=== PATIENT | male | born 1940 | race Caucasian/White ===

== ENCOUNTER 2017-03-01 16:25 | Inpatient (IN) ==
--- NOTE | 2017-03-01 16:42 | Emergency Department Report ---
Medical Clearance HPI - General Chief complaint: Medical Clearance <OctoberPablo - 03/19/17 07:40> Stated complaint: [facility] <OctoberPablo - 03/19/17 07:40> Time Seen by Provider: 03/01/17 16:42 <OctoberPablo - 03/19/17 07:40> Source: EMS, other <Tod Mckenzie - 03/01/17 18:40> Mode of arrival: wheelchair <Tod Mckenzie - 03/01/17 18:40> Limitations: altered mental status <Tod Mckenzie - 03/01/17 18:40> - History of Present Illness HPI Narrative: Patient is a 76-year-old male, brought from [place] for evaluation for dementia with behavioral disturbances. Patient lives in a facility in [place] has eloped 3 times in the past week, they've been concern for the patient's ability to care for himself and safety, [facility] was contacted and patient was transferred here for evaluation. Patient with severe dementia, does not know why he is here is only oriented to himself <Johanne Mckenzien - 03/01/17 18:40> MD complaint: medical clearance requested <MagalyTod - 03/01/17 18:40> Onset (ago): day(s) <Johanne Mckenzien - 03/01/17 18:40> Reason for Medical Clearance: psychiatric condition <Johanne Mckenzien - 18:40> Traumatic Symptoms: denies traumatic injury <Johanne Mckenzien [facility] 03/01/17 18:40> Home medications: Home Medications Medication Instructions Recorded Confirmed Acetaminophen 650 mg PO Q4H PRN 03/01/17 03/01/17 Atorvastatin [Lipitor] 20 mg PO HS 03/01/17 03/01/17 Carbidopa/Levodopa 25/250 MG 2 tab PO TID 03/01/17 03/01/17 [Sinemet] Cimetidine 300 mg PO DAILY 03/01/17 03/01/17 Citalopram [Celexa] 20 mg PO DAILY 03/01/17 03/01/17 LORazepam [Ativan] 0.5 mg PO Q6H PRN 03/01/17 03/01/17 LORazepam [Ativan] 0.5 mg PO TID 03/01/17 03/01/17 Previous Rx's Medication Instructions Recorded CephALEXin [Keflex] 500 mg PO TID 3 Days #9 capsule 03/08/17 Cyanocobalamin (B-12) [Vit. B-12] 1,000 mcg PO DAILY tablet 03/08/17 Haloperidol [Haldol] 0.5 mg PO Q6H PRN tablet 03/08/17 LORazepam [Ativan] 0.5 mg PO Q6H PRN tablet 03/08/17 Quetiapine [Seroquel] 50 mg PO TID #90 tab 03/08/17 <[facility] 07:40> Allergies/Adverse reactions: Allergies Allergy/AdvReac Type Severity Reaction Status Date / Time Penicillins Allergy Verified 03/01/17 16:55 <[facility] 03/19/17 07:40> Review of Systems Limitations: ROS unobtainable due to patient's medical condition <Tod Mckenzie [facility] 03/01/17 18:40> [facility] Patient Stated Medical History Other Behavioral Health Yes: Dementia <[facility] 03/19[facility] 07:40> Patient Stated Medical History Other Behavioral Health Yes: Dementia <BakerTod chaparro [facility] 03/01/17 18:40> Medical History Updates: Arrhythmia. dementia. Cholesterol <Tod Mckenzie [facility] 03/01/17 18:40> - Social History Smoking status: Never smoker <Tod Mckenzie [facility] 03/01/17 18:40> Substance use type: does not use <Tod Mckenzie [facility] 03/01/17 18:40> Alcohol intake frequency: does not drink <Tod Mckenzie [facility] 03/01/17 18:40> Physical Exam - General General appearance: alert, in no apparent distress <Tod Mckenzie [facility] 18:40> - ENT ENT exam: Present: normal oropharynx, mucous membranes moist, TM's normal bilaterally <Tod Mckenzie - 03/01/17 18:40> - Neck Neck exam: Present: full ROM, trachea midline <Tod Mckenzie - 03/01/17 18: 40> - Chest Chest inspection: Present: normal inspection, symmetric chest wall rise. Absent : tenderness <Tod Mckenzie Q - 03/01/17 18:40> - Respiratory Respiratory exam: Present: normal lung sounds bilaterally. Absent: respiratory distress, wheezes, stridor <Tod Mckenzie Q - 03/01/17 18:40> - Cardiovascular Cardiovascular exam: Present: regular rate, normal rhythm, normal heart sounds <Tod Mckenzie - 03/01/17 18:40> - Abdominal Exam Abdominal exam: Present: soft. Absent: distention, tenderness <Tod Mckenzie Q - 03/01/17 18:40> - Rectal Exam Rectal exam: Present: normal inspection, normal rectal tone. Absent: decreased rectal tone, heme (-) stool, heme (+) stool, black stool, bloody stool, fecal impaction, hemorrhoids, mass, tenderness, normal prostate, prostate tenderness, prostate enlargement <eb 03/01/17 20:06> - Extremities Exam Extremities exam: Present: full ROM, normal capillary refill. Absent: tenderness <Tod Mckenzie - 03/01/17 18:40> - Back Exam Back exam: Present: full ROM. Absent: tenderness, muscle spasm <Tod Mckenzie - 03/01/17 18:40> - Skin Skin exam: Present: warm, dry <Tod Mckenzie - 03/01/17 18:40> - Neurological Exam Neurological exam: Present: alert, oriented X3 <Tod Mckenzie Q - 03/01/17 18: 40> - Psychiatric Psychiatric exam: Present: normal affect, normal mood <Tod Mckenzie - 03/01 18:40> Course Course Narrative: Pt cleared for [facility] placement, other than GI panel (for pts c/o several days of loose stools). After several hours of pts inability to give a stool sample, confirmed how much was needed for the PCR. After discussion with pt, rectal exam performed to collect stool specimen. Enough was collected for PCR; sample sent to the lab. Pt tolerated exam well. <October,[facility] - 03/01/17 20:06> Vital Signs Temperature 98.2 F 03/01/17 16:34 Pulse Rate 81 03/01/17 16:34 Respiratory Rate 03/01/17 16:34 Blood Pressure 109/55 03/01/17 16:34 Pulse Oximetry 94 03/01/17 16:34 Temperature 98.9 F 03/08/17 15:30 Pulse Rate 80 03/08/17 15:30 Respiratory Rate 22 03/08/17 15:30 Blood Pressure 128/73 03/08/17 15:30 Pulse Oximetry 94 03/08/17 15:30 <OctoberPablo - 03/19/17 07:40> Medical Clearance - [facility] Narrative Medical decision making narrative: Dementia with behavioral disturbances <Johanne Mckenzien - 03/01/17 18:40> - Medical Records Attestation: I reviewed the patient's medical records. <Tod Mckenzie - 18:40> - Lab Data Attestation: I reviewed the patient's lab results. <Tod Mckenzie - 18:40> Result diagrams: 03/08/17 05:46 03/08/17 05:46 <OctoberPablo - 03/19/17 07:40> Lab Results 03/01/17 03/01/17 03/01/17 Range/Units 17:38 17:38 19:36 WBC 9.2 (4.5-11.0) T/MM3 RBC 4.59 (4.50-5.90) M/MM3 Hgb 13.9 (13.5-17.5) GM/DL Hct 42.0 (41-53) % MCV 91.5 (80-100) UM3 MCH 30.3 (26-34) UUG MCHC 33.1 (31-37) GM/DL RDW Std Deviation 43.8 (36.9-50.2) FL Plt Count 219 (130-400) T/MM3 MPV 10.3 (9.4-12.4) UM3 Immature Gran % (Auto) 0.4 (0.0-0.5) % Neut % (Auto) 70.8 H (33-66) % Lymph % (Auto) 15.6 L (23-45) % [place] % (Auto) 9.6 H (0-9.0) % Eos % (Auto) 2.7 (0-4) % Baso % (Auto) 0.9 (0-2) % Neut # 6.5 (1.8-7.7) T/MM3 Lymph # 1.4 (1-4.8) T/MM3 [place] # 0.9 H (0-0.8) T/MM3 Eos # 0.3 (0-0.5) T/MM3 Baso # 0.1 (0-0.2) T/MM3 Abs Immat Gran (auto) 0.04 H (0.00-0.03) T/MM3 Turbidity < 20 (0-20) Sodium 145 H (134-144) MEQ/L Potassium 4.3 (3.6-5) MEQ/L Chloride 105 (98-107) MEQ/L Carbon Dioxide 28 (22-30) MEQ/L Anion Gap 12 (5-15) MEQ/L BUN 16.0 (9-20) MG/DL Creatinine 0.9 (0.8-1.5) MG/DL GFR Calculation 82 BUN/Creatinine Ratio 18 (6-26) RATIO Glucose 96 (75-110) MG/DL Calculated Osmolality 280 (261-280) MOSM/KG Calcium 9.8 (8.4-10.2) MG/DL Total Bilirubin 0.70 (0.20-1.30) MG/DL Icterus Index < 2 (0-7) AST 26 (17-59) U/L ALT 23 (21-72) U/L Alkaline Phosphatase 95 (38-126) U/L Total Protein 7.5 (6.3-8.2) G/DL Albumin 4.3 (3.5-5.0) G/DL Globulin 3.2 (2.4-3.6) G/DL Albumin/Globulin Ratio 1.3 (1.1-2.2) RATIO Lipase 56 (23-300) U/L Specimen Hemolysis < 15 (0-25) Ur Collection Type Urine, clean catch Urine Color Yellow (YELLOW) Urine Clarity Sl cloudy Urine pH 6.5 (5.0-8.0) Ur Specific [place] 1.025 (1.015-1.025) Urine Protein Negative (NEGATIVE) Urine Glucose (UA) Negative (NEGATIVE) Urine Ketones Trace A (NEGATIVE) Urine Occult Blood Negative (NEGATIVE) Urine Nitrate Positive A (NEGATIVE) Urine Bilirubin Negative (NEGATIVE) Urine Urobilinogen 1.0 (NORMAL) EU/DL Ur Leukocyte Esterase 1+ A (NEGATIVE) Urine RBC 0-1 (0-3) /HPF Urine WBC 30-50 H (0-5) /HPF Ur Squamous Epith Cells 0-5 Urine Bacteria 4+ H (NEGATIVE) Ur Culture Indicated? Cult reflexed &setup Stl Cyclospora species (Negative) Stool Rotavirus A PCR (Negative) Stool Adenovirus (PCR) (Negative) Stool Astrovirus (PCR) (Negative) Stool Campylobacter PCR (Negative) Stl C.difficile Tox PCR (Negative) Stool Cryptosporidium PCR (Negative) Stl E.coli Shiga Toxins (Negative) Stool E coli O157 PCR (Negative) Stl Enterotoxigenic E PCR (Negative) Stool EPEC (PCR) (Negative) Stool EAEC (PCR) (Negative) Stool Entamoeba (PCR) (Negative) Stool Giardia Lamblia PCR (Negative) Stool Salmonella PCR (Negative) Stool Sapovirus (PCR) (Negative) Stl P. shigelloides PCR (Negative) Stl Shigella/EIEC PCR (Negative) St Y.enterocolitica PCR (Negative) Stool Vibrio (PCR) (Negative) Stl Vibrio cholera PCR (Negative) Stl Norovirus GI/GII PCR (Negative) 03/01/17 Range/Units 19:36 WBC (4.5-11.0) T/MM3 RBC (4.50-5.90) M/MM3 Hgb (13.5-17.5) GM/DL Hct (41-53) % MCV (80-100) UM3 MCH (26-34) UUG MCHC (31-37) GM/DL RDW Std Deviation (36.9-50.2) FL Plt Count (130-400) T/MM3 MPV (9.4-12.4) UM3 Immature Gran % (Auto) (0.0-0.5) % Neut % (Auto) (33-66) % Lymph % (Auto) (23-45) % [place] % (Auto) (0-9.0) % Eos % (Auto) (0-4) % Baso % (Auto) (0-2) % Neut # (1.8-7.7) T/MM3 Lymph # (1-4.8) T/MM3 [place] # (0-0.8) T/MM3 Eos # (0-0.5) T/MM3 Baso # (0-0.2) T/MM3 Abs Immat Gran (auto) (0.00-0.03) T/MM3 Turbidity (0-20) Sodium (134-144) MEQ/L Potassium (3.6-5) MEQ/L Chloride (98-107) MEQ/L Carbon Dioxide (22-30) MEQ/L Anion Gap (5-15) MEQ/L BUN (9-20) MG/DL Creatinine (0.8-1.5) MG/DL GFR Calculation BUN/Creatinine Ratio (6-26) RATIO Glucose (75-110) MG/DL Calculated Osmolality (261-280) MOSM/KG Calcium (8.4-10.2) MG/DL Total Bilirubin (0.20-1.30) MG/DL Icterus Index (0-7) AST (17-59) U/L ALT (21-72) U/L Alkaline Phosphatase (38-126) U/L Total Protein (6.3-8.2) G/DL Albumin (3.5-5.0) G/DL Globulin (2.4-3.6) G/DL Albumin/Globulin Ratio (1.1-2.2) RATIO Lipase (23-300) U/L Specimen Hemolysis (0-25) Ur Collection Type Urine Color (YELLOW) Urine Clarity Urine pH (5.0-8.0) Ur Specific [place] (1.015-1.025) Urine Protein (NEGATIVE) Urine Glucose (UA) (NEGATIVE) Urine Ketones (NEGATIVE) Urine Occult Blood (NEGATIVE) Urine Nitrate (NEGATIVE) Urine Bilirubin (NEGATIVE) Urine Urobilinogen (NORMAL) EU/DL Ur Leukocyte Esterase (NEGATIVE) Urine RBC (0-3) /HPF Urine WBC (0-5) /HPF Ur Squamous Epith Cells Urine Bacteria (NEGATIVE) Ur Culture Indicated? Stl Cyclospora species Negative (Negative) Stool Rotavirus A PCR Negative (Negative) Stool Adenovirus (PCR) Negative (Negative) Stool Astrovirus (PCR) Negative (Negative) Stool Campylobacter PCR Negative (Negative) Stl C.difficile Tox PCR Negative (Negative) Stool Cryptosporidium PCR Negative (Negative) Stl E.coli Shiga Toxins Negative (Negative) Stool E coli O157 PCR N/a (Negative) Stl Enterotoxigenic E PCR Negative (Negative) Stool EPEC (PCR) Negative (Negative) Stool EAEC (PCR) Negative (Negative) Stool Entamoeba (PCR) Negative (Negative) Stool Giardia Lamblia PCR Negative (Negative) Stool Salmonella PCR Negative (Negative) Stool Sapovirus (PCR) Negative (Negative) Stl P. shigelloides PCR Negative (Negative) Stl Shigella/EIEC PCR Negative (Negative) St Y.enterocolitica PCR Negative (Negative) Stool Vibrio (PCR) Negative (Negative) Stl Vibrio cholera PCR Negative (Negative) Stl Norovirus GI/GII PCR Negative (Negative) <October,Pablo M - 03/19/17 07:40> Lab Results 03/01/17 03/01/17 03/01/17 Range/Units 17:38 17:38 19:36 WBC 9.2 (4.5-11.0) T/MM3 RBC 4.59 (4.50-5.90) M/MM3 Hgb 13.9 (13.5-17.5) GM/DL Hct 42.0 (41-53) % MCV 91.5 (80-100) UM3 MCH 30.3 (26-34) UUG MCHC 33.1 (31-37) GM/DL RDW Std Deviation 43.8 (36.9-50.2) FL Plt Count 219 (130-400) T/MM3 MPV 10.3 (9.4-12.4) UM3 Immature Gran % (Auto) 0.4 (0.0-0.5) % Neut % (Auto) 70.8 H (33-66) % Lymph % (Auto) 15.6 L (23-45) % [place] % (Auto) 9.6 H (0-9.0) % Eos % (Auto) 2.7 (0-4) % Baso % (Auto) 0.9 (0-2) % Neut # 6.5 (1.8-7.7) T/MM3 Lymph # 1.4 (1-4.8) T/MM3 [place] # 0.9 H (0-0.8) T/MM3 Eos # 0.3 (0-0.5) T/MM3 Baso # 0.1 (0-0.2) T/MM3 Abs Immat Gran (auto) 0.04 H (0.00-0.03) T/MM3 Turbidity < 20 (0-20) Sodium 145 H (134-144) MEQ/L Potassium 4.3 (3.6-5) MEQ/L Chloride 105 (98-107) MEQ/L Carbon Dioxide 28 (22-30) MEQ/L Anion Gap 12 (5-15) MEQ/L BUN 16.0 (9-20) MG/DL Creatinine 0.9 (0.8-1.5) MG/DL GFR Calculation 82 BUN/Creatinine Ratio 18 (6-26) RATIO Glucose 96 (75-110) MG/DL Calculated Osmolality 280 (261-280) MOSM/KG Calcium 9.8 (8.4-10.2) MG/DL Total Bilirubin 0.70 (0.20-1.30) MG/DL Icterus Index < 2 (0-7) AST 26 (17-59) U/L ALT 23 (21-72) U/L Alkaline Phosphatase 95 (38-126) U/L Total Protein 7.5 (6.3-8.2) G/DL Albumin 4.3 (3.5-5.0) G/DL Globulin 3.2 (2.4-3.6) G/DL Albumin/Globulin Ratio 1.3 (1.1-2.2) RATIO Lipase 56 (23-300) U/L Specimen Hemolysis < 15 (0-25) Ur Collection Type Urine, clean catch Urine Color Yellow (YELLOW) Urine Clarity Sl cloudy Urine pH 6.5 (5.0-8.0) Ur Specific [place] 1.025 (1.015-1.025) Urine Protein Negative (NEGATIVE) Urine Glucose (UA) Negative (NEGATIVE) Urine Ketones Trace A (NEGATIVE) Urine Occult Blood Negative (NEGATIVE) Urine Nitrate Positive A (NEGATIVE) Urine Bilirubin Negative (NEGATIVE) Urine Urobilinogen 1.0 (NORMAL) EU/DL Ur Leukocyte Esterase 1+ A (NEGATIVE) Urine RBC 0-1 (0-3) /HPF Urine WBC 30-50 H (0-5) /HPF Ur Squamous Epith Cells 0-5 Urine Bacteria 4+ H (NEGATIVE) Ur Culture Indicated? Cult reflexed &setup Stl Cyclospora species (Negative) Stool Rotavirus A PCR (Negative) Stool Adenovirus (PCR) (Negative) Stool Astrovirus (PCR) (Negative) Stool Campylobacter PCR (Negative) Stl C.difficile Tox PCR (Negative) Stool Cryptosporidium PCR (Negative) Stl E.coli Shiga Toxins (Negative) Stool E coli O157 PCR (Negative) Stl Enterotoxigenic E PCR (Negative) Stool EPEC (PCR) (Negative) Stool EAEC (PCR) (Negative) Stool Entamoeba (PCR) (Negative) Stool Giardia Lamblia PCR (Negative) Stool Salmonella PCR (Negative) Stool Sapovirus (PCR) (Negative) Stl P. shigelloides PCR (Negative) Stl Shigella/EIEC PCR (Negative) St Y.enterocolitica PCR (Negative) Stool Vibrio (PCR) (Negative) Stl Vibrio cholera PCR (Negative) Stl Norovirus GI/GII PCR (Negative) 03/01/17 Range/Units 19:36 WBC (4.5-11.0) T/MM3 RBC (4.50-5.90) M/MM3 Hgb (13.5-17.5) GM/DL Hct (41-53) % MCV (80-100) UM3 MCH (26-34) UUG MCHC (31-37) GM/DL RDW Std Deviation (36.9-50.2) FL Plt Count (130-400) T/MM3 MPV (9.4-12.4) UM3 Immature Gran % (Auto) (0.0-0.5) % Neut % (Auto) (33-66) % Lymph % (Auto) (23-45) % [place] % (Auto) (0-9.0) % Eos % (Auto) (0-4) % Baso % (Auto) (0-2) % Neut # (1.8-7.7) T/MM3 Lymph # (1-4.8) T/MM3 [place] # (0-0.8) T/MM3 Eos # (0-0.5) T/MM3 Baso # (0-0.2) T/MM3 Abs Immat Gran (auto) (0.00-0.03) T/MM3 Turbidity (0-20) Sodium (134-144) MEQ/L Potassium (3.6-5) MEQ/L Chloride (98-107) MEQ/L Carbon Dioxide (22-30) MEQ/L Anion Gap (5-15) MEQ/L BUN (9-20) MG/DL Creatinine (0.8-1.5) MG/DL GFR Calculation BUN/Creatinine Ratio (6-26) RATIO Glucose (75-110) MG/DL Calculated Osmolality (261-280) MOSM/KG Calcium (8.4-10.2) MG/DL Total Bilirubin (0.20-1.30) MG/DL Icterus Index (0-7) AST (17-59) U/L ALT (21-72) U/L Alkaline Phosphatase (38-126) U/L Total Protein (6.3-8.2) G/DL Albumin (3.5-5.0) G/DL Globulin (2.4-3.6) G/DL Albumin/Globulin Ratio (1.1-2.2) RATIO Lipase (23-300) U/L Specimen Hemolysis (0-25) Ur Collection Type Urine Color (YELLOW) Urine Clarity Urine pH (5.0-8.0) Ur Specific [place] (1.015-1.025) Urine Protein (NEGATIVE) Urine Glucose (UA) (NEGATIVE) Urine Ketones (NEGATIVE) Urine Occult Blood (NEGATIVE) Urine Nitrate (NEGATIVE) Urine Bilirubin (NEGATIVE) Urine Urobilinogen (NORMAL) EU/DL Ur Leukocyte Esterase (NEGATIVE) Urine RBC (0-3) /HPF Urine WBC (0-5) /HPF Ur Squamous Epith Cells Urine Bacteria (NEGATIVE) Ur Culture Indicated? Stl Cyclospora species Negative (Negative) Stool Rotavirus A PCR Negative (Negative) Stool Adenovirus (PCR) Negative (Negative) Stool Astrovirus (PCR) Negative (Negative) Stool Campylobacter PCR Negative (Negative) Stl C.difficile Tox PCR Negative (Negative) Stool Cryptosporidium PCR Negative (Negative) Stl E.coli Shiga Toxins Negative (Negative) Stool E coli O157 PCR N/a (Negative) Stl Enterotoxigenic E PCR Negative (Negative) Stool EPEC (PCR) Negative (Negative) Stool EAEC (PCR) Negative (Negative) Stool Entamoeba (PCR) Negative (Negative) Stool Giardia Lamblia PCR Negative (Negative) Stool Salmonella PCR Negative (Negative) Stool Sapovirus (PCR) Negative (Negative) Stl P. shigelloides PCR Negative (Negative) Stl Shigella/EIEC PCR Negative (Negative) St Y.enterocolitica PCR Negative (Negative) Stool Vibrio (PCR) Negative (Negative) Stl Vibrio cholera PCR Negative (Negative) Stl Norovirus GI/GII PCR Negative (Negative) <Tod Mckenzie Q - 03/01/17 18:40> - Radiology Data Attestation: I reviewed the patient's radiology results. <BakerTod chaparro - 18:40> Chest x-ray: No acute cardio pulmonary findings CT head: No acute intracranial abnormality <Tod Mckenzie 03/01/17 18:40> - EKG Data EKG #1 EKG attestation: Yes: I reviewed and interpreted this EKG. <October,Pablo 18:42> EKG shows normal: sinus rhythm, axis, intervals, QRS complexes <October,Pablo 03/01/17 18:42> Rate: normal <October,Pablo 03/01/17 18:42> Interpretation: nonspecific ST-T wave changes <eb 03/01/17 18:42> Disposition Clinical Impression: Medical Clearance Dementia with behavioral disturbance Qualifiers: Dementia type: unspecified type Qualified Code(s): F03.91 - Unspecified dementia with behavioral disturbance <October,[facility] 03/19/17 07:40> Disposition: 64 To [facility], operated by [facility] <eb 03/19/17 07:40> Condition: Stable <eb 03/19/17 07:40> Prescriptions: New LORazepam [Ativan] 0.5 mg PO Q6H PRN tablet PRN Reason: Extreme Agitation Quetiapine [Seroquel] 50 mg PO TID #90 tab Cyanocobalamin (B-12) [Vit. B-12] 1,000 mcg PO DAILY tablet Haloperidol [Haldol] 0.5 mg PO Q6H PRN tablet PRN Reason: Extreme Agitation CephALEXin [Keflex] 500 mg PO TID 3 Days #9 capsule Continue LORazepam [Ativan] 0.5 mg PO Q6H PRN PRN Reason: Anxiety Acetaminophen 650 mg PO Q4H PRN PRN Reason: Pain /Fever LORazepam [Ativan] 0.5 mg PO TID Citalopram [Celexa] 20 mg PO DAILY Cimetidine 300 mg PO DAILY Atorvastatin [Lipitor] 20 mg PO HS Carbidopa/Levodopa 25/250 MG [Sinemet] 2 tab PO TID Discontinued Zolpidem Tartrate 5 mg PO HS Quetiapine Fumarate [Seroquel] 25 mg PO DAILY PRN PRN Reason: Prn Orders Magnesium Hydroxide [Milk of Magnesia] 30 ml PO Q72H PRN PRN Reason: Constipation Lorazepam 0.5 ml TOP Q4H PRN PRN Reason: Prn Orders Quetiapine Fumarate [Seroquel] 50 mg PO BID <[facility]/19[facility] 07:40> Referrals: Jennifer Hall [Other] <[facility] 03/19/17 07:40> Time of Disposition: 07:40 <[facility] 03/19/17 07:40> - Seen By: physician <[facility] 03/19/17 07:40>
--- OUTSIDE RECORDS SUMMARY | 2017-03-01 16:52 | External Medical Summary | Referral Summary ---
:1940 Author Organization [facility], [facility] Address [address] [place] [address] Care Team Providers Name Role Phone Maunel Henderson Primary Care Physician Encounter VC Date(s): 09/11/15 - 09/11/15 [facility], [facility] [address], [place] [address] Discharge Diagnosis: Hypercholesterolemia Discharge Diagnosis: Annual physical exam Discharge Diagnosis: Prostate cancer screening Discharge Disposition: 01-Home or Self Care Attending Physician: Manuel Henderson MD Admitting Physician: Manuel Henderson MD Vital Signs Most recent to oldest [Reference Range]: 1 Peripheral Pulse Rate [60-100 bpm] 70 bpm (09/11/15 10:12 AM) Blood Pressure [90-140/60-90 mmHg] 110/70 mmHg (09/11/15 10:12 AM) SpO2 93 % (09/11/15 10:12 AM) Problem List Condition Effective Dates Status Health Status Informant Cardiac arrhythmia(Confirmed) Active History of Active hypotestosteronemia(Confirmed) H/O hyperlipidemia(Confirmed) Active Allergies, Adverse Reactions, Alerts No Known Medication Allergies Medications simvastatin 40 mg oral tablet 40 mg 1 tabs, Oral, Bedtime (once a day), X 90 days, # 90 tabs, 3 Refill(s), Pharmacy: [facility] #[id number], 1 tabs Oral Bedtime (once a day),x90 days Start Date: 09/11/15 Stop Date: 09/05/16 Status: OrderedSinemet 25 mg-250 mg oral tablet 1 tabs, Oral, TID, # 90 tabs, 11 Refill(s), Pharmacy: [facility] #[id number] Start Date: 09/11/15 Status: Ordered Results Chemistry Most recent to oldest [Reference Range]: 1 Sodium Lvl [135-144 mEq/L] 140 mEq/L (09/11/15 10:33 AM) Potassium Lvl [3.5-5.2 mEq/L] 3.8 mEq/L (09/11/15 10:33 AM) Chloride [99-111 mEq/L] 108 mEq/L (09/11/15 10:33 AM) CO2 [23-31 mEq/L] 24 mEq/L (09/11/15 10:33 AM) AGAP [3-20] 8 (09/11/15 10:33 AM) BUN [8-26 mg/dL] 14 mg/dL (09/11/15 10:33 AM) Glucose Lvl [70-99 mg/dL] 121 mg/dL *HI* (09/11/15 10:33 AM) Creatinine Lvl [0.72-1.25 mg/dL] 0.77 mg/dL (09/11/15 10:33 AM) eGFR [>60 mL/min] >60 mL/min 1 (09/11/15 10:33 AM) Calcium Lvl [8.9-10.5 mg/dL] 9.3 mg/dL (09/11/15 10:33 AM) Albumin Lvl [3.4-4.8 gm/dL] 4.3 gm/dL (09/11/15 10:33 AM) Total Protein [6.2-8.1 gm/dL] 6.5 gm/dL (09/11/15 10:33 AM) Globulin [1.8-4.0 gm/dL] 2.2 gm/dL (09/11/15 10:33 AM) ALT [0-55 U/L] 3 U/L (09/11/15 10:33 AM) AST [5-34 U/L] 11 U/L (09/11/15 10:33 AM) Alk Phos [40-150 U/L] 101 U/L (09/11/15 10:33 AM) Bili Total [0.2-1.2 mg/dL] 0.4 mg/dL (09/11/15 10:33 AM) PSA (wihout Reflex Free) [0.0-6.5 ng/mL] 3.3 ng/mL 2 (09/11/15 10:33 AM) Chol [0-199 mg/dL] 142 mg/dL (09/11/15 10:33 AM) Trig [0-149 mg/dL] 80 mg/dL (09/11/15 10:33 AM) HDL [40-84 mg/dL] 32 mg/dL *LOW* (09/11/15 10:33 AM) LDL [0-130 mg/dL] 94 mg/dL (09/11/15 10:33 AM) VLDL Cholesterol [0-28 mg/dL] 16 mg/dL (09/11/15 10:33 AM) Cardiac Risk [0.0-5.7] 4.4 (09/11/15 10:33 AM) TSH with Reflex Free T4 [0.35-4.94] 1.60 (09/11/15 10:33 AM) 1Result Comment: Multiply eGFR results by 1.21 for race.2Result Comment: AUA PSA Best Practice Guidelines: Age-Adjusted PSA Values by Ethnic Group Age Range Asians - Caucasians Americans 40-49 0-2.0 0-2.0 0-2.5 50-59 0-3.0 0-4.0 0-3.5 60-69 0-4.0 0-4.5 0-4.5 70-79 0-5.0 0-5.5 0-6.5Urinalysis Most recent to oldest [Reference Range]: 1 UA Color Yellow (09/11/15 10:34 AM) UA Appear Clear (09/11/15 10:34 AM) UA pH [5.0-8.0] 5.0 (09/11/15 10:34 AM) UA Leuk Est [Negative] Negative (09/11/15 10:34 AM) UA Nitrite [Negative] Negative (09/11/15 10:34 AM) UA Protein [Negative] Negative (09/11/15 10:34 AM) UA Glucose [Negative] Negative (09/11/15 10:34 AM) UA Ketones [Negative] Trace *ABN* (09/11/15 10:34 AM) UA Urobilinogen [<=1.0 mg/dL] 1.0 mg/dL (09/11/15 10:34 AM) UA Bili [Negative] Negative (09/11/15 10:34 AM) UA Blood [Negative] Trace *ABN* (09/11/15 10:34 AM) UA Spec Grav [1.003-1.030] 1.025 (09/11/15 10:34 AM) Type Clean Catch Cl (09/11/15 10:34 AM) Immunizations Vaccine Date Refusal Reason tetanus/diphth/pertuss (Tdap) adult/adol 09/11/15 pneumococcal 13-valent conjugate vaccine 09/11/15 Procedures Procedure Date Related Diagnosis Body Site Collection of venous blood by venipuncture 09/11/15 Social History Social History Type Response Smoking Status Former smoker; Type: Cigarettes Assessment and Plan Extracted from: Title: Office Visit Note Author: Manuel Henderson MD Date: 09/11/15 Assessment/Plan 1.Hypercholesterolemia Lipid profile obtained we will call results when available. Continue statin, refill provided. Ordered: Comprehensive Metabolic Panel Lipid Panel Office Visit Level 5 Est 49567 Prostate Specific Antigen Return to Clinic TSH with Reflex Free T4 Urinalysis with Culture if Indicated 2.Prostate cancer screening PSA obtained we will call results when available. Ordered: Comprehensive Metabolic Panel Lipid Panel Office Visit Level 5 Est 49112 Prostate Specific Antigen Return to Clinic TSH with Reflex Free T4 Urinalysis with Culture if Indicated 3.Annual physical exam Immunizations updated for tetanus and pneumonia. He's going to check with the pharmacy in regards to Zostavax. Healthy diet and daily exercise recommended. Annual physicals recommended. Orders: carbidopa-levodopa, 1 tabs, Oral, TID, # 90 tabs, 11 Refill(s), Pharmacy: [facility] #[id number] simvastatin, 40 mg 1 tabs, Oral, Bedtime (once a day), X 90 days, # 90 tabs, 3 Refill(s), Pharmacy: [facility] #[id number], 1 tabs Oral Bedtime (once a day ),x90 days Referrals to Other Providers Referred by: Manuel Henderson MD
--- OUTSIDE RECORDS SUMMARY | 2017-03-01 16:52 | External Medical Summary | Referral Summary ---
:1939 Author Organization [facility], [facility] Address [address] [place] [address] Care Team Providers Name Role Phone Manuel Henderson Primary Care Physician Encounter VC Date(s): 03/07/16 - 03/07/16 [facility], [facility] [address] [place] [address] [place] Discharge Diagnosis: Weight loss Discharge Diagnosis: Hypercholesterolemia Discharge Diagnosis: Confusion Discharge Disposition: 01-Home or Self Care Attending Physician: Manuel Henderson MD Admitting Physician: Manuel Henderson MD Vital Signs Most recent to oldest [Reference Range]: 1 Peripheral Pulse Rate [60-100 bpm] 121 bpm *HI* (03/07/16 3:34 PM) Blood Pressure [90-140/60-90 mmHg] 80/46 mmHg *LOW* (03/07/16 3:34 PM) SpO2 93 % (03/07/16 3:34 PM) Problem List Condition Effective Dates Status Health Status Informant Cardiac arrhythmia(Confirmed) Active History of Active hypotestosteronemia(Confirmed) H/O hyperlipidemia(Confirmed) Active Allergies, Adverse Reactions, Alerts No Known Medication Allergies Medications citalopram 20 mg oral tablet 20 mg 1 tabs, Oral, Daily, # 30 tabs, 0 Refill(s), Pharmacy: [facility] # [id number], 1 tabs Oral Daily Start Date: 03/07/16 Status: Orderedsimvastatin 40 mg oral tablet 40 mg 1 tabs, Oral, Bedtime (once a day), X 90 days, # 90 tabs, 3 Refill(s), Pharmacy: [facility] #[id number], 1 tabs Oral Bedtime (once a day),x90 days Start Date: 09/11/15 Stop Date: 09/05/16 Status: OrderedSinemet 25 mg-250 mg oral tablet 1 tabs, Oral, TID, # 90 tabs, 11 Refill(s), Pharmacy: [facility] #[id number] Start Date: 09/11/15 Status: Ordered Results Chemistry Most recent to oldest [Reference Range]: 1 TSH with Reflex Free T4 [0.35-4.94] 0.66 (03/07/16 3:59 PM) Immunizations Vaccine Date Refusal Reason tetanus/diphth/pertuss (Tdap) adult/adol 09/11/15 pneumococcal 13-valent conjugate vaccine 09/11/15 Procedures No data available for this section Social History Social History Type Response Smoking Status Former smoker; Type: Cigarettes Assessment and Plan Extracted from: Title: Office Visit Note Author: Manuel Henderson MD Date: 03/07/16 Assessment/Plan 1.Weight loss TSH obtained we will call results when available. [facility] Chest x-ray and brain CT report also revie wed and are essentially unremarkable. I encouraged him to startdrinking boost or ensure twice dailyand to increase his fluid intake in general. Recheck in 3 weeks. Ordered: Lipid Panel Office Visit Level 5 Est 68644 Prostate Specific Antigen Return to Clinic TSH with Reflex Free T4 2.Confusion He actuallyperformed fairly well today on Mini-Mental status testing. He was unable to spell world backwards and struggled with serial sevens. I suspect that he either is in the early stages of senile dementiaor possibly couldjust be depressed. I'm going to have him try citalopram 20 mg once dailyand will recheck in 3 weeks. Ordered: Lipid Panel Office Visit Level 5 Est 80878 Prostate Specific Antigen Return to Clinic TSH with Reflex Free T4 3.Hypercholesterolemia Well controlled, cont current meds. Ordered: Lipid Panel Office Visit Level 5 Est 05484 Prostate Specific Antigen Return to Clinic TSH with Reflex Free T4 Referrals to Other Providers Referred by: Manuel Henderson MD
--- OUTSIDE RECORDS SUMMARY | 2017-03-01 16:52 | External Medical Summary | Continuity of Care Document ---
:1939 Author Organization Via [facility] Allergies Active Description Code Type Severity Reaction Onset Reported/ Identified Relationship Clinical to Patient Status Yes No Known NKMA N/A N/A Medication Allergies Yes NKDA N/A N/A Medications Medication Packaging Start Date Stop Date Route Dosage Sig 07/24/2014 ORAL PP_[id number] daily 08/11/2014 ORAL PP_[id number] twice daily 09/01/2014 ORAL PP_00000015249 daily 10/15/2014 ORAL PP_00000015249 daily 10/27/2014 ORAL PP_00000004762 12/04/2014 ORAL PP_00000004762 01/22/2015 ORAL PP_00000004762 four times daily 03/12/2015 Oral PP_00000004762 Problems Date Dx Attending Type Code Diagnosis Diagnosed By Coded 03/07/2016 Manuel Henderson E78.0 Pure hypercholesterolemia A 03/07/2016 Manuel Henderson R41.0 Disorientation, A unspecified 03/07/2016 Manuel Henderson R63.4 Abnormal weight loss A Procedures Code Description Performed By Performed On 03/07/2016 71045 Office or other outpatient visit for the evaluation and management of an established patient, which requires at least 2 of these 3 beltran components: A comprehensive history; A comprehensive examination; Results Encounters ACCT No. Visit Discharge Status Pt. Type Provider Facility Loc./Unit Complaint Date/Time [id number] 03/07/2016 03/07/2016 [facility] ER 462 15:29:00 23:59:00 nt Manuel Brady Md FOLLOW UP Clinic [id number] 11/15/2016 11/15/2016 CLS Outpatie [id number] 08:29:59 23:59:59 nt 2959 [id number] 11/14/2016 11/14/2016 DIS Outpatie [id number] 14:43:35 14:43:36 nt 4335 [id number] 11/14/2016 11/14/2016 DIS Outpatie [id number] 10:57:05 10:57:05 nt 5705 [id number] 11/14/2016 11/14/2016 DIS Outpatie [id number] 10:42:03 10:42:05 nt 4203 [id number] 11/14/2016 11/14/2016 DIS Outpatie [id number] 09:50:21 09:50:21 nt 5021 [id number] 11/14/2016 11/14/2016 DIS Outpatie [id number] 09:50:02 09:50:02 nt 5002 [id number] 11/14/2016 11/14/2016 DIS Outpatie [id number] 09:39:46 09:39:48 nt 3946 [id number] 11/14/2016 11/14/2016 DIS Outpatie [id number] 09:31:31 09:31:32 nt 3131 [id number] 11/14/2016 11/14/2016 DIS Outpatie [id number] 09:29:41 09:29:42 nt 2941 [id number] 11/14/2016 11/14/2016 DIS Outpatie [id number] 09:29:35 09:29:35 nt 2935 [id number] 11/10/2016 11/10/2016 CLS Outpatie [id number] 10:19:50 23:59:59 nt 1950 [id number] 11/09/2016 11/09/2016 DIS Outpatie [id number] 12:08:21 12:08:24 nt 0821 [id number] 11/09/2016 11/09/2016 DIS Outpatie [id number] 11:58:37 11:58:38 nt 5837 [id number] 08/04/2016 08/04/2016 DIS Outpatie [id number] 10:06:51 10:06:51 nt 0651 [id number] 04/07/2016 04/07/2016 DIS Outpatie [id number] 09:36:56 09:36:56 nt 3656 [id number] 04/06/2016 04/06/2016 DIS Outpatie [id number] 16:47:08 16:47:09 nt 4708 [id number] 04/05/2016 04/05/2016 CLS Outpatie [id number] 10:23:03 23:59:59 nt 2303 [id number] 04/04/2016 04/04/2016 DIS Outpatie [id number] 14:13:06 14:13:06 nt 1306 [id number] 04/04/2016 04/04/2016 DIS Outpatie [id number] 14:05:19 14:05:19 nt 0519 [id number] 04/04/2016 04/04/2016 DIS Outpatie [id number] 13:36:57 13:36:57 nt 3657 [id number] 04/04/2016 04/04/2016 DIS Outpatie [id number] 13:33:02 13:33:02 nt 3302 [id number] 03/31/2016 03/31/2016 DIS Outpatie [id number] 09:31:44 09:31:44 nt 3144 [id number] 02/16/2016 02/16/2016 DIS Outpatie [id number] 08:49:16 08:49:16 nt 4916 [id number] 02/09/2016 02/09/2016 CLS Outpatie [id number] 09:31:45 23:59:59 nt 3145 [id number] 02/09/2016 02/09/2016 CLS Outpatie [id number] 09:31:26 23:59:59 nt 3126 [id number] 02/08/2016 02/08/2016 DIS Outpatie [id number] 12:23:30 12:23:30 nt 2330 [id number] 02/08/2016 02/08/2016 DIS Outpatie [id number] 11:53:16 11:53:16 nt 5316 [id number] 02/04/2016 02/04/2016 CLS Outpatie [id number] 11:04:14 23:59:59 nt 0414 [id number] 02/04/2016 02/04/2016 CLS Outpatie [id number] 11:04:10 23:59:59 nt 0410 [id number] 02/04/2016 02/04/2016 CLS Outpatie [id number] 10:11:20 23:59:59 nt 1120 [id number] 02/04/2016 02/04/2016 DIS Outpatie [id number] 11:04:11 11:04:11 nt 0411 [id number] 02/04/2016 02/04/2016 DIS Outpatie [id number] 10:13:03 10:13:04 nt 1303 [id number] 02/04/2016 02/04/2016 DIS Outpatie [id number] 10:11:22 10:11:23 nt 1122 [id number] 02/04/2016 02/04/2016 DIS Outpatie [id number] 10:11:19 10:11:19 nt 1119 [id number] 02/04/2016 02/04/2016 DIS Outpatie [id number] 10:07:09 10:07:10 nt 0709 [id number] 02/04/2016 02/04/2016 DIS Outpatie [id number] 10:07:02 10:07:03 nt 0702 [id number] 02/04/2016 02/04/2016 DIS Outpatie [id number] 10:06:47 10:06:49 nt 0647 [id number] 02/04/2016 02/04/2016 DIS Outpatie [id number] 10:06:33 10:06:34 nt 0633 NHQ323607 02/04/2016 02/04/2016 DIS Outpatie [id number] 10:06:19 10:06:20 nt 0619 [id number] 02/02/2016 02/02/2016 ACT Outpatie [id number] 03:43:13 03:43:13 nt 4313 [id number] 07/06/2015 07/06/2015 CLS Outpatie [id number] 11:08:09 23:59:59 nt 0809 [id number] 06/25/2015 06/25/2015 CLS Outpatie [id number] 10:21:01 23:59:59 nt 2100 [id number] 06/25/2015 06/25/2015 CLS Outpatie [id number] 10:20:30 23:59:59 nt 2029 PSZ185464 06/25/2015 06/25/2015 DIS Outpatie [id number] 10:21:41 10:21:43 nt 214 [id number] 06/25/2015 06/25/2015 DIS Outpatie [id number] 10:20:05 10:20:06 nt 2005 [id number] 06/08/2015 06/08/2015 DIS Outpatie [id number] 11:33:31 11:33:34 nt 3331 [id number] 06/08/2015 06/08/2015 DIS Outpatie [id number] 09:42:37 09:42:40 nt 4237 [id number] 06/08/2015 06/08/2015 DIS Outpatie [id number] 09:42:35 09:42:36 nt 4235 HKC156260 05/01/2015 05/01/2015 CLS Outpatie [id number] 10:28:52 23:59:59 nt 2852 [id number] 04/30/2015 04/30/2015 CLS Outpatie [id number] 08:55:03 23:59:59 nt 5503 [id number] 04/30/2015 04/30/2015 CLS Outpatie [id number] 08:54:35 23:59:59 nt 5435 [id number] 04/30/2015 04/30/2015 CLS Outpatie [id number] 08:54:27 23:59:59 nt 5427 [id number] 04/30/2015 04/30/2015 DIS Outpatie [id number] 11:45:04 11:45:04 nt 4504 [id number] 04/30/2015 04/30/2015 DIS Outpatie [id number] 11:07:05 11:07:05 nt 0705 [id number] 04/30/2015 04/30/2015 DIS Outpatie [id number] 10:00:16 10:00:17 nt 0016 [id number] 04/28/2015 04/28/2015 CLS Outpatie [id number] 11:42:33 23:59:59 nt 4233 [id number] 04/28/2015 04/28/2015 DIS Outpatie [id number] 11:43:29 11:43:34 nt 4329 [id number] 04/28/2015 04/28/2015 DIS Outpatie [id number] 09:59:34 09:59:34 nt 5934 [id number] 04/28/2015 04/28/2015 DIS Outpatie [id number] 09:59:30 09:59:30 nt 5930 [id number] 01/23/2015 01/23/2015 DIS Outpatie [id number] 13:21:09 13:21:09 nt 2109 [id number] 01/22/2015 01/22/2015 CLS Outpatie [id number] 11:31:07 23:59:59 nt 3107 [id number] 01/22/2015 01/22/2015 CLS Outpatie [id number] 09:23:56 23:59:59 nt 2356 [id number] 01/22/2015 01/22/2015 CLS Outpatie [id number] 09:22:55 23:59:59 nt 2255 [id number] 01/22/2015 01/22/2015 DIS Outpatie [id number] 13:37:19 13:37:19 nt 3719 [id number] 01/22/2015 01/22/2015 DIS Outpatie [id number] 10:06:05 10:06:05 nt 0605 [id number] 01/22/2015 01/22/2015 DIS Outpatie [id number] 09:24:02 09:24:02 nt 2402 [id number] 01/21/2015 01/21/2015 DIS Outpatie [id number] 13:52:19 13:52:22 nt 5219 [id number] 01/19/2015 01/19/2015 CLS Outpatie [id number] 08:25:40 23:59:59 nt 2540 [id number] 01/19/2015 01/19/2015 DIS Outpatie [id number] 08:25:39 08:25:39 nt 2539 [id number] 01/06/2015 01/06/2015 CLS Outpatie [id number] 15:21:54 23:59:59 nt 2154 [id number] 01/01/2015 01/01/2015 DIS Outpatie [id number] 13:58:15 13:58:17 nt 5815 [id number] 12/31/2014 12/31/2014 CLS Outpatie [id number] 12:47:59 23:59:59 nt 4759 [id number] 12/04/2014 12/04/2014 CLS Outpatie [id number] 11:09:40 23:59:59 nt 0940 [id number] 11/11/2014 11/11/2014 CLS Outpatie [id number] 11:32:28 23:59:59 nt 3228 [id number] 10/28/2014 10/28/2014 CLS Outpatie [id number] 10:01:59 23:59:59 nt 0159 [id number] 10/27/2014 10/27/2014 CLS Outpatie [id number] 15:27:38 23:59:59 nt 2738 [id number] 10/27/2014 10/27/2014 CLS Outpatie [id number] 15:25:55 23:59:59 nt 2555 [id number] 10/27/2014 10/27/2014 DIS Outpatie [id number] 14:51:29 14:51:30 nt 5129 [id number] 10/27/2014 10/27/2014 DIS Outpatie [id number] 14:51:28 14:51:28 nt 5128 [id number] 10/02/2014 10/02/2014 DIS Outpatie [id number] 09:04:21 09:04:21 nt 0421 [id number] 09/15/2014 09/15/2014 CLS Outpatie [id number] 13:48:42 23:59:59 nt 4842 [id number] 09/02/2014 09/02/2014 DIS Outpatie [id number] 11:47:32 11:47:33 nt 4732 [id number] 09/01/2014 09/01/2014 DIS Outpatie [id number] 12:21:12 12:21:12 nt 2112 [id number] 07/24/2014 07/24/2014 CLS Outpatie [id number] 08:26:23 23:59:59 nt 2623 KRV595561 07/24/2014 07/24/2014 CLS Outpatie [id number] 08:26:15 23:59:59 nt 2615 [id number] 07/24/2014 07/24/2014 CLS Outpatie [id number] 08:26:13 23:59:59 nt 2613 NJR763162 07/24/2014 07/24/2014 CLS Outpatie [id number] 08:26:12 23:59:59 nt 2612 [id number] 07/24/2014 07/24/2014 CLS Outpatie [id number] 08:25:28 23:59:59 nt 2528 [id number] 07/24/2014 07/24/2014 CLS Outpatie [id number] 08:25:23 23:59:59 nt 2523 [id number] 07/24/2014 07/24/2014 CLS Outpatie [id number] 07:59:31 23:59:59 nt 5931 PCG164328 07/24/2014 07/24/2014 CLS Outpatie [id number] 07:41:22 23:59:59 nt 4122 [id number] 07/24/2014 07/24/2014 CLS Outpatie [id number] 07:41:21 23:59:59 nt 4121 [id number] 07/24/2014 07/24/2014 CLS Outpatie [id number] 07:41:20 23:59:59 nt 4120 [id number] 07/24/2014 07/24/2014 CLS Outpatie [id number] 07:41:03 23:59:59 nt 4103 [id number] 07/24/2014 07/24/2014 CLS Outpatie [id number] 07:41:02 23:59:59 nt 4102 [id number] 07/24/2014 07/24/2014 CLS Outpatie [id number] 07:35:01 23:59:59 nt 3501 [id number] 07/24/2014 07/24/2014 DIS Outpatie [id number] 11:14:50 11:14:51 nt 1450 [id number] 07/24/2014 07/24/2014 DIS Outpatie [id number] 09:11:43 09:11:43 nt 1143 [id number] 07/24/2014 07/24/2014 DIS Outpatie [id number] 08:52:42 08:52:42 nt 5242 [id number] 07/24/2014 07/24/2014 DIS Outpatie [id number] 08:39:15 08:39:15 nt 3915 FNQ081112 07/24/2014 07/24/2014 DIS Outpatie [id number] 08:39:14 08:39:14 nt 3914 [id number] 07/24/2014 07/24/2014 DIS Outpatie [id number] 08:25:17 08:25:19 nt 2517 [id number] 07/24/2014 07/24/2014 DIS Outpatie [id number] 08:25:12 08:25:13 nt 2512 [id number] 07/24/2014 07/24/2014 DIS Outpatie [id number] 07:41:01 07:41:01 nt 4101 LRW556007 05/20/2014 05/20/2014 CLS Outpatie [id number] 13:40:10 23:59:59 nt 4010 FJK082212 05/20/2014 05/20/2014 CLS Outpatie [id number] 13:40:09 23:59:59 nt 4009 [id number] 05/20/2014 05/20/2014 CLS Outpatie [id number] 13:39:28 23:59:59 nt 3928 [id number] 05/20/2014 05/20/2014 DIS Outpatie [id number] 13:40:01 13:40:03 nt 4001 [id number] 11/14/2016 Document [id number] 14:40:43 Registra 4043 tion [id number] 11/14/2016 Document [id number] 09:40:00 Registra 40 tion [id number] 11/14/2016 Document [id number] 09:39:00 Registra 39 tion [id number] 04/05/2016 Document [id number] 09:55:02 Reg[facility] 5502 tion NDJ765206 04/05/2016 Document [id number] 07:49:28 Registra 4928 tion [id number] 04/05/2016 Document [id number] 06:33:08 Reg[facility] 3308 tion [id number] 04/04/2016 Document [id number] 13:36:00 Registra 36 tion [id number] 02/11/2016 Document [id number] 06:35:18 Registra 3518 tion [id number] 02/05/2016 Document [id number] 13:07:27 Registra 0727 tion [id number] 02/04/2016 Document [id number] 10:11:00 Registra 11 tion [id number] 05/01/2015 Document [id number] 10:28:11 Registra 2811 tion [id number] 04/30/2015 Document [id number] 11:07:08 Registra 0708 tion [id number] 04/30/2015 Document [id number] 10:07:00 Registra 07 tion [id number] 04/30/2015 Document [id number] 10:04:00 Registra 04 tion [id number] 03/13/2015 Document [id number] 07:08:28 Registra tion [id number] 03/13/2015 Document [id number] 07:08:04 Registra tion [id number] 03/13/2015 Document [id number] 07:07:50 Registra tion [id number] 01/23/2015 Document [id number] 10:25:15 Registra 2515 tion [id number] 01/22/2015 Document [id number] 13:36:58 Registra 3658 tion [id number] 01/22/2015 Document [id number] 11:42:39 Registra tion [id number] 01/22/2015 Document [id number] 11:25:04 Registra tion [id number] 01/22/2015 Document [id number] 11:25:02 Registra tion [id number] 01/22/2015 Document [id number] 11:24:59 Registra tion [id number] 01/22/2015 Document [id number] 11:24:56 Registra tion [id number] 01/22/2015 Document [id number] 11:24:53 Registra tion [id number] 01/22/2015 Document [id number] 11:24:49 Registra tion [id number] 01/22/2015 Document [id number] 11:24:47 Registra tion [id number] 01/22/2015 Document [id number] 11:24:44 Registra tion [id number] 01/22/2015 Document [id number] 10:11:56 Registra tion [id number] 01/22/2015 Document [id number] 10:11:53 Registra tion [id number] 01/22/2015 Document [id number] 10:11:50 Registra tion [id number] 01/22/2015 Document [id number] 10:11:48 Registra tion [id number] 01/22/2015 Document [id number] 10:11:45 Registra tion [id number] 01/22/2015 Document 57042 10:11:42 Registra tion [id number] 01/22/2015 Document [id number] 10:11:40 Registra tion [id number] 01/22/2015 Document 20604 10:11:37 Registra tion [id number] 01/22/2015 Document [id number] 10:10:00 Registra 10 tion [id number] 12/04/2014 Document [id number] 12:25:09 Registra tion [id number] 12/04/2014 Document [id number] 12:24:55 Registra tion [id number] 12/04/2014 Document [id number] 12:24:22 Registra tion [id number] 12/04/2014 Document 70331 12:22:57 Registra tion [id number] 12/04/2014 Document [id number] 12:22:16 Registra tion [id number] 12/04/2014 Document [id number] 12:20:51 Registra tion [id number] 12/04/2014 Document 31050 12:20:30 Registra tion [id number] 12/04/2014 Document 54557 12:20:04 Registra tion [id number] 12/04/2014 Document 61162 12:19:50 Registra tion [id number] 12/04/2014 Document 35459 11:11:16 Registra tion [id number] 12/04/2014 Document 18147 11:11:02 Registra tion [id number] 12/04/2014 Document 30197 11:10:12 Registra tion [id number] 12/04/2014 Document 39595 11:09:57 Registra tion [id number] 11/04/2014 Document [id number] 09:44:54 Registra 4454 tion [id number] 10/27/2014 Document [id number] 16:42:44 Registra 4244 tion [id number] 10/27/2014 Document 52440 16:29:40 Registra tion [id number] 10/27/2014 Document 65387 16:29:28 Registra tion [id number] 10/27/2014 Document [id number] 16:29:25 Registra tion [id number] 10/27/2014 Document [id number] 16:29:13 Registra tion [id number] 10/27/2014 Document [id number] 16:29:01 Registra tion [id number] 10/27/2014 Document 41663 14:58:05 Registra tion [id number] 10/27/2014 Document [id number] 14:53:00 Registra 53 tion [id number] 10/15/2014 Document [id number] 14:47:09 Registra tion [id number] 10/15/2014 Document [id number] 14:47:06 Registra tion [id number] 10/15/2014 Document 30079 14:46:55 Registra tion [id number] 10/15/2014 Document 17843 14:46:53 Registra tion [id number] 10/15/2014 Document 59288 14:46:49 Registra tion [id number] 10/15/2014 Document 27820 14:46:47 Registra tion [id number] 10/15/2014 Document 38296 14:46:44 Registra tion [id number] 10/15/2014 Document [id number] 14:46:41 Registra tion [id number] 09/02/2014 Document [id number] 09:12:41 Registra 1241 tion [id number] 09/01/2014 Document [id number] 12:23:00 Registra 23 tion [id number] 07/24/2014 Document [id number] 07:47:00 Registra 47 tion
[2017-03-01] MEDS ORDERED: FOSFOMYCIN 3 GRAM PACKET PO ONE (21:18)
[2017-03-01] MEDS ORDERED: HALOPERIDOL 5 MG/ML INJECTION IM PRN (21:42)
[2017-03-01] MEDS ORDERED: HALOPERIDOL 0.5 MG TABLET PO PRN (21:42)
[2017-03-02 00:28] VITALS: BMI 25.2
--- NOTE | 2017-03-02 08:02 | XRay Report ---
Indication: generations eval PROCEDURE: XR chest 1V: Encounter: Initial Comparison: None FINDINGS: The lungs are clear. There is no abnormal airspace opacity, pleural effusion or pneumothorax identified. The heart size, pulmonary vasculature and mediastinum are within normal limits. Prior CABG. IMPRESSION: No acute cardiopulmonary abnormality. .
--- NOTE | 2017-03-02 08:03 | CT Scan Report ---
Indication: [facility] eval PROCEDURE: CT head/brain wo con: Encounter: Initial Comparison: None Technique: Axial CT images through the head were performed without contrast. Iterative Reconstruction dose reducing technique was utilized. FINDINGS: Mild atrophy. The ventricles are of normal size, shape, and contour for the patient's age. There are scattered areas of low attenuation in the white matter which most likely represent changes from chronic microvascular ischemia. The brainstem, cerebellum, and cerebral hemispheres otherwise have a normal morphology and CT attenuation. There is no evidence of midline displacement. No hemorrhage, signs of acute territorial stroke, mass effect, mass lesions, or edema is evident. The visualized portions of the skull base, midface, and calvarium demonstrate no abnormality. The paranasal sinuses are well aerated and free of significant disease. The tympanic and mastoid cavities appear normal. IMPRESSION: No acute intracranial abnormality or hemorrhage. There is a preliminary report by [facility] [employer]. .
[2017-03-02] MEDS: QUETIAPINE 50 MG TABLET PO SCH ×2 (09:38→20:13)
[2017-03-02] MEDS: CITALOPRAM 20 MG TABLET PO SCH (09:38)
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
[2017-03-02] MEDS: CIMETIDINE 300 MG TABLET PO SCH (14:35)
[2017-03-02] MEDS: LORazepam 0.5 MG TABLET PO PRN (14:36)
[2017-03-02] MEDS: LACTOBACILLUS (15B cfu) CAPSULE PO SCH (17:16)
[2017-03-02] MEDS: ATORVASTATIN 20 MG TABLET PO SCH (20:13)
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
[2017-03-03] MEDS: LACTOBACILLUS (15B cfu) CAPSULE PO SCH ×2 (09:23→18:10)
[2017-03-03] MEDS: CITALOPRAM 20 MG TABLET PO SCH (09:23)
[2017-03-03] MEDS: CIMETIDINE 300 MG TABLET PO SCH (09:23)
[2017-03-03] MEDS: QUETIAPINE 50 MG TABLET PO SCH ×2 (09:23→20:24)
--- NOTE | 2017-03-03 15:48 | Progress Note ---
Progress Note: Patient Review - 03/03/17.Tara. Chart reviewed. Vital signs stable. Was seen and evaluated by psychiatrist today who reported patient had some insomnia last night, only sleeping about 2.5 hours. He did exhibit some behaviors including agitation and exit seeking this afternoon requiring PRN Ativan. He continues on Keflex for acute UTI. Urine culture revealed Klebsiella pneumoniae with sensitivities to all but ampicillin. Will continue on Keflex at this time. Labs this morning revealed resolution of hypernatremia with sodium at 144. Will recheck periodically throughout admission.
--- NOTE | 2017-03-03 18:26 | Neuropsych Progress Note ---
[facility] Subjective Date: 03/03/17 - Sujective/Severity of Illness Medications: Atorvastatin Calcium (Lipitor) 20 mg PO HS [facility] Last Admin: 03/02/17 20:13 Dose: 20 mg Carbidopa/Levodopa (Sinemet) 2 tab PO TID/E [facility] Last Admin: 03/03/17 14:56 Dose: 2 tab Cephalexin HCl (Keflex) 500 mg PO Q6HR [facility] Stop: 03/12/17 14:59 Last Admin: 03/03/17 14:56 Dose: 500 mg Cimetidine (Tagamet) 300 mg PO DAILY [facility] Last Admin: 03/03/17 09:23 Dose: 300 mg Citalopram Hydrobromide (Celexa) 20 mg PO DAILY [facility] Last Admin: 03/03/17 09:23 Dose: 20 mg Haloperidol (Haldol) 0.5 mg PO Q6H PRN PRN Reason: Extreme agitation Haloperidol Lactate (Haldol) 0.5 mg IM Q6H PRN PRN Reason: Extreme agitation Lactobacillus Acidophilus (Culturelle) 2 cap PO BIDWM [facility] Last Admin: 03/03/17 18:10 Dose: 2 cap Lorazepam (Ativan) 0.5 mg PO Q6H PRN PRN Reason: Extreme agitation Last Admin: 03/02/17 14:36 Dose: 0.5 mg Lorazepam (Ativan Inj) 0.5 mg IM Q6H PRN PRN Reason: Extreme agitation Quetiapine Fumarate (Seroquel) 50 mg PO BID [facility] Last Admin: 03/03/17 09:23 Dose: 50 mg Subjective: Pt seen and chart examined. Nursing reports pt has done well today. Sleeping well and has a good appetite. No behaviors noted. On face to face the pt is seen lying in bed. He is pleasant but confused. He is only oriented to self. He denies any pain and voices no concerns at this time. Denies depression or psychosis. Start Time: 17:00 Stop Time: 17:15 Mental Status Exam Vitals: Last Vital Signs Temp 98.6 F 03/03/17 16:00 Pulse 80 03/03/17 16:00 Resp 18 03/03/17 16:00 BP 102/68 03/03/17 16:00 Pulse Ox 92 03/03/17 16:00 Height: 1.7 m Weight: 73.1 kg - Mental Status Exam Muscle Strength/Tone: Normal Dressing: Casual Grooming: Fair Attitude: Guarded Motor Activity: Retardation Eye Contact: Fair Speech: Slowed Volume: Soft Rhythm: Appropriate Rhythm Orientation: Oriented to person Mood: Neutral Rate of Thoughts: Delayed Thought Organization: [place] Associations: Flight [employer] Abstract Reasoning: Poor abstract reasoning Thought Content: Normal Perception/Psychotic: Hx psychosis, not current Language: Naming Impaired Fund of Knowledge: Poor fund of knowledge Memory: Poor-immediate, Poor-recent Suicidal Ideation: None Homicidal Ideation: None Insight: Poor Judgement: Poor Impulse Control: Poor - Laboratory Result Diagrams: 03/03/17 05:11 03/03/17 05:11 Laboratory Results - last 24 hr 03/03/17 03/03/17 03/03/17 05:11 05:11 05:11 WBC 7.4 RBC 4.54 Hgb 13.7 Hct 41.5 MCV 91.4 MCH 30.2 MCHC 33.0 RDW Std Deviation 44.6 Plt Count 201 MPV 10.7 Immature Gran % (Auto) 0.7 H Neut % (Auto) 54.3 Lymph % (Auto) 26.5 [place] % (Auto) 12.0 H Eos % (Auto) 5.0 H Baso % (Auto) 1.5 Neut # 4.0 Lymph # 2.0 [place] # 0.9 H Eos # 0.4 Baso # 0.1 Abs Immat Gran (auto) 0.05 H Turbidity < 20 Sodium 144 Potassium 4.3 Chloride 105 Carbon Dioxide 28 Anion Gap 11 BUN 18.0 Creatinine 0.8 GFR Calculation 94 BUN/Creatinine Ratio 23 Glucose 95 Hemoglobin A1c 5.8 L Calculated Osmolality 279 Calcium 9.5 Icterus Index < 2 TSH 1.34 Specimen Hemolysis < 15 Assessment and Plan (1) Delirium due to another medical condition Problem details: UTI Current visit: Yes Status: Acute (2) Major neurocognitive disorder Problem details: with behavioral disturbance Current visit: Yes Status: Acute Hospital Course Summary Disclaimer: The visit summary below is not to be considered part of the above Progress Note. Hospital Course: 03/02/17: [facility]. ADMISSION Assessment Dementia, Alzheimer's Disease with behavioral changes, acute on chronic. UTI, acute, present on admission. Hypernatremia, acute, present on admission. Parkinson's Disease with gait instability with frequent falls, chronic. CAD and Hyperlipidemia. Depression and Anxiety. Constipation. Plan Agree with admission to [facility] for further psychiatric evaluation and treatment. Provide safe and supportive environment with close monitoring as patient is a high risk for elopement and falls. UTI noted on admission. Preliminary culture reveals gram negative rods. Culture from recent UTI on 02/07/17 revealed Klebsiella pneumoniae which was treated with Cipro 500mg BID x 7 days. Sensitivity from that time showed only resistance to ampicillin and nitrofurantoin. Will initiate Keflex 500mg QID x 10 days for UTI. In light of patient's allergy to penicillin, monitor patient closely for signs of allergic reaction. Review of literature indicated high rates of resistance to cephalosporins with ESBL. Prior UA culture revealed sensitivities to cephalosporins and in light of recent treatment with Cipro and risk of side of effects with quinolones and Bactrim, will initiate Keflex and monitor new sensitivities closely and adjust treatment as indicated. Patient has been afebrile and WBC on admission was stable at 9.2. Will recheck CBC on to monitor blood counts. Initiate lactobacillus in light of initiation of antibiotic. Recent loose stools reported by home. GI panel in ED was negative. Monitor closely in light of recent antibiotics treatment with Cipro. Mild hypernatremia noted on admission with sodium 145. Encourage oral fluid intake and will recheck BMP on 03/03 to monitor electrolytes and renal function. Continue home Lipitor for hyperlipidemia and have patient follow up as outpatient for management. CT head and CXR upon admission were negative. Will obtain TSH and B12 for additional evaluation in light of behavioral changes. Results pending. Upon discharge, patient's care will be returned to his PCP, Dr. Henderson 03/03/17 18:26 Pt has not had any behaviors today. We will continue to monitor
[2017-03-03] MEDS: ATORVASTATIN 20 MG TABLET PO SCH (20:24)
[2017-03-04] MEDS: LORazepam 0.5 MG TABLET PO PRN (01:01)
[2017-03-04] MEDS: PHENAZOPYRIDINE 95 MG TABLET PO PRN ×3 (01:01→20:08)
[2017-03-04] MEDS: LACTOBACILLUS (15B cfu) CAPSULE PO SCH ×2 (08:19→17:11)
[2017-03-04] MEDS: QUETIAPINE 50 MG TABLET PO SCH ×2 (08:19→20:08)
[2017-03-04] MEDS: CITALOPRAM 20 MG TABLET PO SCH (08:19)
[2017-03-04] MEDS: CIMETIDINE 300 MG TABLET PO SCH (08:20)
[2017-03-04] MEDS: ATORVASTATIN 20 MG TABLET PO SCH (20:08)
--- NOTE | 2017-03-04 20:56 | Neuropsych Progress Note ---
[facility] Subjective Date: 03/04/17 - Sujective/Severity of Illness Medications: Atorvastatin Calcium (Lipitor) 20 mg PO HS [facility] Last Admin: 03/04/17 20:08 Dose: 20 mg Carbidopa/Levodopa (Sinemet) 2 tab PO TID/E [facility] Last Admin: 03/04/17 20:08 Dose: 2 tab Cephalexin HCl (Keflex) 500 mg PO Q6HR [facility] Stop: 03/12/17 14:59 Last Admin: 03/04/17 20:08 Dose: 500 mg Cimetidine (Tagamet) 300 mg PO DAILY [facility] Last Admin: 03/04/17 08:20 Dose: 300 mg Citalopram Hydrobromide (Celexa) 20 mg PO DAILY [facility] Last Admin: 03/04/17 08:19 Dose: 20 mg Haloperidol (Haldol) 0.5 mg PO Q6H PRN PRN Reason: Extreme agitation Haloperidol Lactate (Haldol) 0.5 mg IM Q6H PRN PRN Reason: Extreme agitation Lactobacillus Acidophilus (Culturelle) 2 cap PO BIDWM [facility] Last Admin: 03/04/17 17:11 Dose: 2 cap Lorazepam (Ativan) 0.5 mg PO Q6H PRN PRN Reason: Extreme agitation Last Admin: 03/02/17 14:36 Dose: 0.5 mg Lorazepam (Ativan Inj) 0.5 mg IM Q6H PRN PRN Reason: Extreme agitation Last Admin: 03/04/17 01:18 Dose: 0.5 mg Phenazopyridine HCl (Pyridium Eq) 95 mg PO TID PRN PRN Reason: Urinary pain Last Admin: 03/04/17 20:08 Dose: 95 mg Quetiapine Fumarate (Seroquel) 50 mg PO BID [facility] Last Admin: 03/04/17 20:08 Dose: 50 mg Subjective: Pt seen and chart examined. Nursing reports pt received a dose of Ativan last night for aggression and exit seeking. Pt has done well today and no behaviors noted. On face to face the pt is pleasant but confused. He is only oriented to self. Denies pain. Tolerating meds Start Time: 10:15 Stop Time: 10:30 Mental Status Exam Vitals: Last Vital Signs Temp 97.6 F 03/04/17 15:18 Pulse 75 03/04/17 15:18 Resp 17 03/04/17 15:18 BP 96/61 03/04/17 15:18 Pulse Ox 94 03/04/17 15:18 Height: 1.7 m Weight: 73.1 kg - Mental Status Exam Muscle Strength/Tone: Normal Dressing: Casual Grooming: Fair Attitude: Guarded Motor Activity: Retardation Eye Contact: Fair Speech: Slowed Volume: Soft Rhythm: Appropriate Rhythm Orientation: Oriented to person Mood: Neutral Rate of Thoughts: Delayed Thought Organization: [place] Associations: Flight [employer] Abstract Reasoning: Poor abstract reasoning Thought Content: Normal Perception/Psychotic: Hx psychosis, not current Language: Naming Impaired Fund of Knowledge: Poor fund of knowledge Memory: Poor-immediate, Poor-recent Suicidal Ideation: None Homicidal Ideation: None Insight: Poor Judgement: Poor Impulse Control: Poor - Laboratory Result Diagrams: 03/03/17 05:11 03/03/17 05:11 Assessment and Plan (1) Delirium due to another medical condition Problem details: UTI Current visit: Yes Status: Acute (2) Major neurocognitive disorder Problem details: with behavioral disturbance Current visit: Yes Status: Acute Hospital Course Summary Disclaimer: The visit summary below is not to be considered part of the above Progress Note. Hospital Course: 03/02/17: [facility]. ADMISSION Assessment Dementia, Alzheimer's Disease with behavioral changes, acute on chronic. UTI, acute, present on admission. Hypernatremia, acute, present on admission. Parkinson's Disease with gait instability with frequent falls, chronic. CAD and Hyperlipidemia. Depression and Anxiety. Constipation. Plan Agree with admission to [facility] for further psychiatric evaluation and treatment. Provide safe and supportive environment with close monitoring as patient is a high risk for elopement and falls. UTI noted on admission. Preliminary culture reveals gram negative rods. Culture from recent UTI on 02/07/17 revealed Klebsiella pneumoniae which was treated with Cipro 500mg BID x 7 days. Sensitivity from that time showed only resistance to ampicillin and nitrofurantoin. Will initiate Keflex 500mg QID x 10 days for UTI. In light of patient's allergy to penicillin, monitor patient closely for signs of allergic reaction. Review of literature indicated high rates of resistance to cephalosporins with ESBL. Prior UA culture revealed sensitivities to cephalosporins and in light of recent treatment with Cipro and risk of side of effects with quinolones and Bactrim, will initiate Keflex and monitor new sensitivities closely and adjust treatment as indicated. Patient has been afebrile and WBC on admission was stable at 9.2. Will recheck CBC on to monitor blood counts. Initiate lactobacillus in light of initiation of antibiotic. Recent loose stools reported by home. GI panel in ED was negative. Monitor closely in light of recent antibiotics treatment with Cipro. Mild hypernatremia noted on admission with sodium 145. Encourage oral fluid intake and will recheck BMP on 03/03 to monitor electrolytes and renal function. Continue home Lipitor for hyperlipidemia and have patient follow up as outpatient for management. CT head and CXR upon admission were negative. Will obtain TSH and B12 for additional evaluation in light of behavioral changes. Results pending. Upon discharge, patient's care will be returned to his PCP, Dr. Henderson 03/03/17 18:26 Pt has not had any behaviors today. We will continue to monitor 03/04/17 20:55 Some agitation and exit seeking at times. Continue current care
[2017-03-05] MEDS: QUETIAPINE 50 MG TABLET PO SCH ×2 (10:58→14:57)
[2017-03-05] MEDS: CITALOPRAM 20 MG TABLET PO SCH (10:58)
[2017-03-05] MEDS: CIMETIDINE 300 MG TABLET PO SCH (10:58)
[2017-03-05] MEDS: LACTOBACILLUS (15B cfu) CAPSULE PO SCH ×2 (10:58→16:52)
--- NOTE | 2017-03-05 12:11 | Neuropsych Progress Note ---
[facility] Subjective Date: 03/05/17 - Sujective/Severity of Illness Medications: Atorvastatin Calcium (Lipitor) 20 mg PO HS [facility] Last Admin: 03/04/17 20:08 Dose: 20 mg Carbidopa/Levodopa (Sinemet) 2 tab PO TID/E [facility] Last Admin: 03/05/17 10:58 Dose: 2 tab Cephalexin HCl (Keflex) 500 mg PO Q6HR [facility] Stop: 03/12/17 14:59 Last Admin: 03/05/17 10:58 Dose: 500 mg Cimetidine (Tagamet) 300 mg PO DAILY [facility] Last Admin: 03/05/17 10:58 Dose: 300 mg Citalopram Hydrobromide (Celexa) 20 mg PO DAILY [facility] Last Admin: 03/05/17 10:58 Dose: 20 mg Haloperidol (Haldol) 0.5 mg PO Q6H PRN PRN Reason: Extreme agitation Haloperidol Lactate (Haldol) 0.5 mg IM Q6H PRN PRN Reason: Extreme agitation Lactobacillus Acidophilus (Culturelle) 2 cap PO BIDWM [facility] Last Admin: 03/05/17 10:58 Dose: 2 cap Lorazepam (Ativan) 0.5 mg PO Q6H PRN PRN Reason: Extreme agitation Last Admin: 03/02/17 14:36 Dose: 0.5 mg Lorazepam (Ativan Inj) 0.5 mg IM Q6H PRN PRN Reason: Extreme agitation Last Admin: 03/04/17 23:50 Dose: 0.5 mg Phenazopyridine HCl (Pyridium Eq) 95 mg PO TID PRN PRN Reason: Urinary pain Last Admin: 03/04/17 20:08 Dose: 95 mg Quetiapine Fumarate (Seroquel) 50 mg PO BID [facility] Last Admin: 03/05/17 10:58 Dose: 50 mg Subjective: Pt seen and chart examined. Nursing reports pt received a dose of Ativan last night for aggression. Pt has done well today and no behaviors noted. On face to face the pt is pleasant but confused. He is only oriented to self. Denies pain. Tolerating meds. Reports his mood is stable and voices no concerns at this time Start Time: 11:15 Stop Time: 11:30 Mental Status Exam Vitals: Last Vital Signs Temp 98.0 F 03/05/17 08:00 Pulse 88 03/05/17 08:00 Resp 18 03/05/17 08:00 BP 121/60 03/05/17 08:00 Pulse Ox 96 03/05/17 08:00 Height: 1.7 m Weight: 73.4 kg - Mental Status Exam Muscle Strength/Tone: Normal Dressing: Casual Grooming: Fair Attitude: Guarded Motor Activity: Retardation Eye Contact: Fair Speech: Slowed Volume: Soft Rhythm: Appropriate Rhythm Orientation: Oriented to person Mood: Neutral Rate of Thoughts: Delayed Thought Organization: [place] Associations: Flight [employer] Abstract Reasoning: Poor abstract reasoning Thought Content: Normal Perception/Psychotic: Hx psychosis, not current Language: Naming Impaired Fund of Knowledge: Poor fund of knowledge Memory: Poor-immediate, Poor-recent Suicidal Ideation: None Homicidal Ideation: None Insight: Poor Judgement: Poor Impulse Control: Poor - Laboratory Result Diagrams: 03/03/17 05:11 03/03/17 05:11 Assessment and Plan (1) Delirium due to another medical condition Problem details: UTI Current visit: Yes Status: Acute (2) Major neurocognitive disorder Problem details: with behavioral disturbance Current visit: Yes Status: Acute Hospital Course Summary Disclaimer: The visit summary below is not to be considered part of the above Progress Note. Hospital Course: 03/02/17: [facility]. ADMISSION Assessment Dementia, Alzheimer's Disease with behavioral changes, acute on chronic. UTI, acute, present on admission. Hypernatremia, acute, present on admission. Parkinson's Disease with gait instability with frequent falls, chronic. CAD and Hyperlipidemia. Depression and Anxiety. Constipation. Plan Agree with admission to [facility] for further psychiatric evaluation and treatment. Provide safe and supportive environment with close monitoring as patient is a high risk for elopement and falls. UTI noted on admission. Preliminary culture reveals gram negative rods. Culture from recent UTI on 02/07/17 revealed Klebsiella pneumoniae which was treated with Cipro 500mg BID x 7 days. Sensitivity from that time showed only resistance to ampicillin and nitrofurantoin. Will initiate Keflex 500mg QID x 10 days for UTI. In light of patient's allergy to penicillin, monitor patient closely for signs of allergic reaction. Review of literature indicated high rates of resistance to cephalosporins with ESBL. Prior UA culture revealed sensitivities to cephalosporins and in light of recent treatment with Cipro and risk of side of effects with quinolones and Bactrim, will initiate Keflex and monitor new sensitivities closely and adjust treatment as indicated. Patient has been afebrile and WBC on admission was stable at 9.2. Will recheck CBC on to monitor blood counts. Initiate lactobacillus in light of initiation of antibiotic. Recent loose stools reported by home. GI panel in ED was negative. Monitor closely in light of recent antibiotics treatment with Cipro. Mild hypernatremia noted on admission with sodium 145. Encourage oral fluid intake and will recheck BMP on 03/03 to monitor electrolytes and renal function. Continue home Lipitor for hyperlipidemia and have patient follow up as outpatient for management. CT head and CXR upon admission were negative. Will obtain TSH and B12 for additional evaluation in light of behavioral changes. Results pending. Upon discharge, patient's care will be returned to his PCP, Dr. Henderson 03/03/17 18:26 Pt has not had any behaviors today. We will continue to monitor 03/04/17 20:55 Some agitation and exit seeking at times. Continue current care 03/05/17 12:10 Remains agitated in the evenings. Increase Seroquel to TID
[2017-03-06] MEDS: ATORVASTATIN 20 MG TABLET PO SCH ×3 (02:03→23:52)
[2017-03-06] MEDS: QUETIAPINE 50 MG TABLET PO SCH ×5 (02:03→23:52)
[2017-03-06] MEDS: PHENAZOPYRIDINE 95 MG TABLET PO PRN (04:23)
[2017-03-06] MEDS: LACTOBACILLUS (15B cfu) CAPSULE PO SCH ×2 (08:56→16:55)
[2017-03-06] MEDS: CITALOPRAM 20 MG TABLET PO SCH (08:56)
[2017-03-06] MEDS: CIMETIDINE 300 MG TABLET PO SCH (08:57)
[2017-03-06] MEDS ORDERED: QUETIAPINE 50 MG TABLET PO SCH (09:00)
--- NOTE | 2017-03-06 15:57 | Progress Note ---
Progress Note: Patient's chart reviewed. Nurse's notes reviewed revealing the patient refused medications last evening. He's been eating only 50% of his meals. He continues on cephalexin for UTI. Has not had any fever or elevated white blood cell count. His vitamin B12 level is low. Will start cyanocobalamin 1000milligrams daily. Psychiatry note, vitals, labs reviewed.
[2017-03-06] MEDS: LORazepam 0.5 MG TABLET PO PRN (19:31)
--- NOTE | 2017-03-06 20:56 | Neuropsych Progress Note ---
[facility] Subjective Date: 03/06/17 - Sujective/Severity of Illness Medications: Atorvastatin Calcium (Lipitor) 20 mg PO HS [facility] Last Admin: 03/06/17 19:31 Dose: 20 mg Carbidopa/Levodopa (Sinemet) 2 tab PO TID/E [facility] Last Admin: 03/06/17 19:30 Dose: 2 tab Cephalexin HCl (Keflex) 500 mg PO Q6HR [facility] Stop: 03/12/17 14:59 Last Admin: 03/06/17 19:30 Dose: 500 mg Cimetidine (Tagamet) 300 mg PO DAILY [facility] Last Admin: 03/06/17 08:57 Dose: 300 mg Citalopram Hydrobromide (Celexa) 20 mg PO DAILY [facility] Last Admin: 03/06/17 08:56 Dose: 20 mg Cyanocobalamin (Vit. B-12) 1,000 mcg PO DAILY [facility] Haloperidol (Haldol) 0.5 mg PO Q6H PRN PRN Reason: Extreme agitation Haloperidol Lactate (Haldol) 0.5 mg IM Q6H PRN PRN Reason: Extreme agitation Lactobacillus Acidophilus (Culturelle) 2 cap PO BIDWM [facility] Last Admin: 03/06/17 16:55 Dose: 2 cap Lorazepam (Ativan) 0.5 mg PO Q6H PRN PRN Reason: Extreme agitation Last Admin: 03/06/17 19:31 Dose: 0.5 mg Lorazepam (Ativan Inj) 0.5 mg IM Q6H PRN PRN Reason: Extreme agitation Last Admin: 03/04/17 23:50 Dose: 0.5 mg Phenazopyridine HCl (Pyridium Eq) 95 mg PO TID PRN PRN Reason: Urinary pain Last Admin: 03/06/17 04:23 Dose: 95 mg Quetiapine Fumarate (Seroquel) 50 mg PO TID [facility] Last Admin: 03/06/17 19:31 Dose: 50 mg Subjective: Pt seen and chart examined. Nursing reports pt is doing a little better. Some exit seeking at times. He did refuse HS meds but later tood them. He remains some what impulsive and is a little unsteady. On face to face the pt is pleasant but confused. He is only oriented to self. He requests to go home. Has poor insight. Tolerating meds. Start Time: 17:15 Stop Time: 17:30 Mental Status Exam Vitals: Last Vital Signs Temp 98.0 F 03/06/17 16:00 Pulse 85 03/06/17 16:00 Resp 16 03/06/17 16:00 BP 162/78 H 03/06/17 16:00 Pulse Ox 98 03/06/17 16:00 Height: 1.7 m Weight: 73.4 kg - Mental Status Exam Muscle Strength/Tone: Normal Dressing: Casual Grooming: Fair Attitude: Guarded Motor Activity: Retardation Eye Contact: Fair Speech: Slowed Volume: Soft Rhythm: Appropriate Rhythm Orientation: Oriented to person Mood: Neutral Rate of Thoughts: Delayed Thought Organization: [place] Associations: [employer] Abstract Reasoning: Poor abstract reasoning Thought Content: Normal Perception/Psychotic: Hx psychosis, not current Language: [place] Impaired Fund of Knowledge: Poor fund of knowledge Memory: Poor-immediate, Poor-recent Suicidal Ideation: None Homicidal Ideation: None Insight: Poor Judgement: Poor Impulse Control: Poor - Laboratory Result Diagrams: 03/03/17 05:11 03/03/17 05:11 Laboratory Results - last 24 hr 03/03/17 05:11 Vitamin B12 215 L Assessment and Plan (1) Delirium due to another medical condition Problem details: UTI Current visit: Yes Status: Acute (2) Major neurocognitive disorder Problem details: with behavioral disturbance Current visit: Yes Status: Acute Hospital Course Summary Disclaimer: The visit summary below is not to be considered part of the above Progress Note. Hospital Course: 03/02/17: [facility]. ADMISSION Assessment Dementia, Alzheimer's Disease with behavioral changes, acute on chronic. UTI, acute, present on admission. Hypernatremia, acute, present on admission. Parkinson's Disease with gait instability with frequent falls, chronic. CAD and Hyperlipidemia. Depression and Anxiety. Constipation. Plan Agree with admission to [facility] for further psychiatric evaluation and treatment. Provide safe and supportive environment with close monitoring as patient is a high risk for elopement and falls. UTI noted on admission. Preliminary culture reveals gram negative rods. Culture from recent UTI on 02/07/17 revealed Klebsiella pneumoniae which was treated with Cipro 500mg BID x 7 days. Sensitivity from that time showed only resistance to ampicillin and nitrofurantoin. Will initiate Keflex 500mg QID x 10 days for UTI. In light of patient's allergy to penicillin, monitor patient closely for signs of allergic reaction. Review of literature indicated high rates of resistance to cephalosporins with ESBL. Prior UA culture revealed sensitivities to cephalosporins and in light of recent treatment with Cipro and risk of side of effects with quinolones and Bactrim, will initiate Keflex and monitor new sensitivities closely and adjust treatment as indicated. Patient has been afebrile and WBC on admission was stable at 9.2. Will recheck CBC on to monitor blood counts. Initiate lactobacillus in light of initiation of antibiotic. Recent loose stools reported by home. GI panel in ED was negative. Monitor closely in light of recent antibiotics treatment with Cipro. Mild hypernatremia noted on admission with sodium 145. Encourage oral fluid intake and will recheck BMP on 03/03 to monitor electrolytes and renal function. Continue home Lipitor for hyperlipidemia and have patient follow up as outpatient for management. CT head and CXR upon admission were negative. Will obtain TSH and B12 for additional evaluation in light of behavioral changes. Results pending. Upon discharge, patient's care will be returned to his PCP, Dr. Henderson 03/03/17 18:26 Pt has not had any behaviors today. We will continue to monitor 03/04/17 20:55 Some agitation and exit seeking at times. Continue current care 03/05/17 12:10 Remains agitated in the evenings. Increase Seroquel to TID 03/06/17 20:56 Some exit seeking and impulsiveness. Continue current care
[2017-03-07] MEDS: LACTOBACILLUS (15B cfu) CAPSULE PO SCH ×2 (07:58→16:32)
[2017-03-07] MEDS: CYANOCOBALAMIN (B-12) 500mcg TABLET PO SCH (07:59)
[2017-03-07] MEDS: QUETIAPINE 50 MG TABLET PO SCH ×3 (08:00→20:07)
[2017-03-07] MEDS: CITALOPRAM 20 MG TABLET PO SCH (08:00)
[2017-03-07] MEDS: CIMETIDINE 300 MG TABLET PO SCH (08:00)
--- NOTE | 2017-03-07 17:26 | Progress Note ---
Subjective: I received notification from [facility] that Prashant had a fall and hit his head. He hasn't had any behavior changes, there was no LOC, and no vomiting. VS after the fall were stable. When I saw him, he was sitting in the dayroom eating supper. He complains of right sided scalp pain. He told me that he was trying to escape and fell to the floor. His fall was witnessed by one of the aids, who states that he fell in the bathroom, and the right side of his head hit the bottom portion of the bathroom door. Prashant denied a headache, nausea/ vomiting, or weakness. He denied a tremor (which was noted in his right arm) but that was noted on his medical history from external chart. Objective Vital signs: Temperature 97.7 F 03/07/17 07:49 Pulse Rate 79 03/07/17 07:49 Respiratory Rate 18 03/07/17 07:49 Blood Pressure 147/78 H 03/07/17 07:49 Pulse Oximetry 99 03/07/17 07:49 Height/Weight/BMI: Height 1.7 m Weight 73.4 kg Body Mass Index 25.2 - Constitutional Present: no acute distress, thin - Routine HEENT Exam Head: Present: hematoma (small hematoma to right posterior parietal scalp) Eye: Present: EOMI, PERRL, normal accommodation. Absent: conjunctival icterus, scleral injection ENT: Present: mucous membranes moist, oropharynx clear - Routine Respiratory Exam Present: CTA bilaterally - Routine Cardiovascular Exam Present: RRR, S1, S2 - Routine Abdominal Exam Present: soft, non tender - Routine Extremities Exam Present: no edema, pulses intact - Routine Back/Spine/Pelvis Exam Back/Spine: Absent: vertebral tenderness - Routine Musculoskeletal Exam Musculoskeletal: Present: normal strength - Routine Skin Exam Present: dry, warm - Routine Neurological Exam Present: alert, CN II-XII intact, abnormal gait (shuffles and unsteady - baseline per staff), moving all extremities, vision grossly intact, hearing grossly intact, normal speech, tremors. Absent: motor deficit, nystagmus, facial asymmetry - Routine Psychiatric Exam Present: cooperative Results - Labs CBC & Chem 7: 03/03/17 05:11 03/03/17 05:11 Assessment and Plan (1) Dementia with behavioral disturbance Current visit: Yes Status: Acute (2) UTI (urinary tract infection) Current visit: Yes Status: Acute Resuscitation Status: Full Code Assessment and Plan: Assessment Dementia, Alzheimer's Disease with behavioral changes, acute on chronic. UTI, acute, present on admission. On Keflex. Hypernatremia, acute, present on admission. Parkinson's Disease with gait instability with frequent falls, chronic. CAD and Hyperlipidemia. Depression and Anxiety. Constipation. Vit B12 deficiency - B12 ordered. Witnessed fall without LOC on 03/07/17. Plan Neuro exam benign. Medications reviewed - not on ASA or anticoagulants. Medical chart reviewed. Head CT done on admit was negative for acute findings. At this time, will ask nursing to check neuros + VS q2h until he goes to bed tonight, then q4h tomorrow. I asked them to contact the hospitalist JOURDAN if abnormal findings were noted. Check CBC and BMP in am. Discussed with Dr. Bernardo. Hospital Course Summary Disclaimer: The visit summary below is not to be considered part of the above Progress Note. Hospital Course: 03/02/17: [facility]. ADMISSION Assessment Dementia, Alzheimer's Disease with behavioral changes, acute on chronic. UTI, acute, present on admission. Hypernatremia, acute, present on admission. Parkinson's Disease with gait instability with frequent falls, chronic. CAD and Hyperlipidemia. Depression and Anxiety. Constipation. Plan [facility] with [facility] for further [facility] evaluation and treatment. Provide safe and supportive environment with close monitoring as patient is a high risk for elopement and falls. UTI noted on admission. Preliminary culture reveals gram negative rods. Culture from recent UTI on 02/07/17 revealed Klebsiella pneumoniae which was treated with Cipro 500mg BID x 7 days. Sensitivity from that time showed only resistance to ampicillin and nitrofurantoin. Will initiate Keflex 500mg QID x 10 days for UTI. In light of patient's allergy to penicillin, monitor patient closely for signs of allergic reaction. Review of literature indicated high rates of resistance to cephalosporins with ESBL. Prior UA culture revealed sensitivities to cephalosporins and in light of recent treatment with Cipro and risk of side of effects with quinolones and Bactrim, will initiate Keflex and monitor new sensitivities closely and adjust treatment as indicated. Patient has been afebrile and WBC on admission was stable at 9.2. Will recheck CBC on to monitor blood counts. Initiate lactobacillus in light of initiation of antibiotic. Recent loose stools reported by home. GI panel in ED was negative. Monitor closely in light of recent antibiotics treatment with Cipro. Mild hypernatremia noted on admission with sodium 145. Encourage oral fluid intake and will recheck BMP on 03/03 to monitor electrolytes and renal function. Continue home Lipitor for hyperlipidemia and have patient follow up as outpatient for management. CT head and CXR upon admission were negative. Will obtain TSH and B12 for additional evaluation in light of behavioral changes. Results pending. Upon discharge, patient's care will be returned to his PCP, Dr. Henderson 03/03/17 18:26 Pt has not had any behaviors today. We will continue to monitor 03/04/17 20:55 Some agitation and exit seeking at times. Continue current care 03/05/17 12:10 Remains agitated in the evenings. Increase Seroquel to TID 03/06/17 20:56 Some exit seeking and impulsiveness. Continue current care 03/07/17 17:38 Neuro exam benign. Medications reviewed - not on ASA or anticoagulants. Medical chart reviewed. Head CT done on admit was negative for acute findings. At this time, will ask nursing to check neuros + VS q2h until he goes to bed tonight, then q4h tomorrow. I asked them to contact the hospitalist JOURDAN if abnormal findings were noted.
[2017-03-07] MEDS ORDERED: ACETAMINOPHEN 325 MG TABLET PO PRN (19:59)
[2017-03-07] MEDS: ATORVASTATIN 20 MG TABLET PO SCH (20:07)
--- NOTE | 2017-03-07 21:59 | Neuropsych Progress Note ---
[facility] Subjective Date: 03/07/17 - Sujective/Severity of Illness Medications: Acetaminophen (Tylenol) 325 - 650 mg PO Q5H PRN PRN Reason: Discomfort Last Admin: 03/07/17 20:01 Dose: 650 mg Atorvastatin Calcium (Lipitor) 20 mg PO HS COUNT INCLUDES THE [facility] Last Admin: 03/07/17 20:07 Dose: 20 mg Carbidopa/Levodopa (Sinemet) 2 tab PO TID/E COUNT INCLUDES THE [facility] Last Admin: 03/07/17 20:07 Dose: 2 tab Cephalexin HCl (Keflex) 500 mg PO Q6HR COUNT INCLUDES THE [facility] Stop: 03/12/17 14:59 Last Admin: 03/07/17 20:07 Dose: 500 mg Cimetidine (Tagamet) 300 mg PO DAILY COUNT INCLUDES THE [facility] Last Admin: 03/07/17 08:00 Dose: 300 mg Citalopram Hydrobromide (Celexa) 20 mg PO DAILY COUNT INCLUDES THE [facility] Last Admin: 03/07/17 08:00 Dose: 20 mg Cyanocobalamin (Vit. B-12) 1,000 mcg PO DAILY COUNT INCLUDES THE [facility] Last Admin: 03/07/17 07:59 Dose: 1,000 mcg Haloperidol (Haldol) 0.5 mg PO Q6H PRN PRN Reason: Extreme agitation Haloperidol Lactate (Haldol) 0.5 mg IM Q6H PRN PRN Reason: Extreme agitation Lactobacillus Acidophilus (Culturelle) 2 cap PO BIDWM COUNT INCLUDES THE [facility] Last Admin: 03/07/17 16:32 Dose: 2 cap Lorazepam (Ativan) 0.5 mg PO Q6H PRN PRN Reason: Extreme agitation Last Admin: 03/06/17 19:31 Dose: 0.5 mg Lorazepam (Ativan Inj) 0.5 mg IM Q6H PRN PRN Reason: Extreme agitation Last Admin: 03/04/17 23:50 Dose: 0.5 mg Magnesium Hydroxide (Mom) 30 ml PO DAILY PRN PRN Reason: Constipation Last Admin: 03/07/17 16:09 Dose: 30 ml Phenazopyridine HCl (Pyridium Eq) 95 mg PO TID PRN PRN Reason: Urinary pain Last Admin: 03/06/17 04:23 Dose: 95 mg Quetiapine Fumarate (Seroquel) 50 mg PO TID COUNT INCLUDES THE [facility] Last Admin: 03/07/17 20:07 Dose: 50 mg Subjective: Pt seen and chart examined. Nursing reports pt has appeared anxious and has been exit seeking at times. Has not required PRn's. On face to face the pt appears anxious. He is only oriented to self. He denies any pain. He is some what paranoid. Tolerating meds Start Time: 17:15 Stop Time: 17:30 Mental Status Exam Vitals: Last Vital Signs Temp 98.6 F 03/07/17 20:11 Pulse 89 03/07/17 17:00 Resp 24 03/07/17 20:11 BP 128/68 03/07/17 20:11 Pulse Ox 92 03/07/17 20:11 Height: 1.7 m Weight: 73.4 kg - Mental Status Exam Muscle Strength/Tone: Normal Dressing: Casual Grooming: Fair Attitude: Guarded Motor Activity: Retardation Eye Contact: Fair Speech: Slowed Volume: Soft Rhythm: Appropriate Rhythm Orientation: Oriented to person Mood: Neutral Rate of Thoughts: Delayed Thought Organization: [place] Associations: Flight of Ideas Abstract Reasoning: Poor abstract reasoning Thought Content: Normal Perception/Psychotic: Hx psychosis, not current Language: Naming Impaired Fund of Knowledge: Poor fund of knowledge Memory: Poor-immediate, Poor-recent Suicidal Ideation: None Homicidal Ideation: None Insight: Poor Judgement: Poor Impulse Control: Poor - Laboratory Result Diagrams: 03/03/17 05:11 03/03/17 05:11 Laboratory Results - last 24 hr 03/03/17 05:11 Triglycerides 107 Cholesterol 113 L LDL Cholesterol, Calc 66.6 VLDL Cholesterol 21.4 HDL Cholesterol 25 L Cholesterol/HDL Ratio 4.5 Assessment and Plan (1) Delirium due to another medical condition Problem details: UTI Current visit: Yes Status: Acute (2) Major neurocognitive disorder Problem details: with behavioral disturbance Current visit: Yes Status: Acute Hospital Course Summary Disclaimer: The visit summary below is not to be considered part of the above Progress Note. Hospital Course: 03/02/17: [facility]. ADMISSION Assessment Dementia, Alzheimer's Disease with behavioral changes, acute on chronic. UTI, acute, present on admission. Hypernatremia, acute, present on admission. Parkinson's Disease with gait instability with frequent falls, chronic. CAD and Hyperlipidemia. Depression and Anxiety. Constipation. Plan [facility]gree with [facility] for further psychiatric evaluation and treatment. Provide safe and supportive environment with close monitoring as patient is a high risk for elopement and falls. UTI noted on admission. Preliminary culture reveals gram negative rods. Culture from recent UTI on 02/07/17 revealed Klebsiella pneumoniae which was treated with Cipro 500mg BID x 7 days. Sensitivity from that time showed only resistance to ampicillin and nitrofurantoin. Will initiate Keflex 500mg QID x 10 days for UTI. In light of patient's allergy to penicillin, monitor patient closely for signs of allergic reaction. Review of literature indicated high rates of resistance to cephalosporins with ESBL. Prior UA culture revealed sensitivities to cephalosporins and in light of recent treatment with Cipro and risk of side of effects with quinolones and Bactrim, will initiate Keflex and monitor new sensitivities closely and adjust treatment as indicated. Patient has been afebrile and WBC on admission was stable at 9.2. Will recheck CBC on to monitor blood counts. Initiate lactobacillus in light of initiation of antibiotic. Recent loose stools reported by home. GI panel in ED was negative. Monitor closely in light of recent antibiotics treatment with Cipro. Mild hypernatremia noted on admission with sodium 145. Encourage oral fluid intake and will recheck BMP on 03/03 to monitor electrolytes and renal function. Continue home Lipitor for hyperlipidemia and have patient follow up as outpatient for management. CT head and CXR upon admission were negative. Will obtain TSH and B12 for additional evaluation in light of behavioral changes. Results pending. Upon discharge, patient's care will be returned to his PCP, Dr. Henderson 03/03/17 18:26 Pt has not had any behaviors today. We will continue to monitor 03/04/17 20:55 Some agitation and exit seeking at times. Continue current care 03/05/17 12:10 Remains agitated in the evenings. Increase Seroquel to TID 03/06/17 20:56 Some exit seeking and impulsiveness. Continue current care 03/07/17 17:38 Neuro exam benign. Medications reviewed - not on ASA or anticoagulants. Medical chart reviewed. Head CT done on admit was negative for acute findings. At this time, will ask nursing to check neuros + VS q2h until he goes to bed tonight, then q4h tomorrow. I asked them to contact the hospitalist JOURDAN if abnormal findings were noted. 03/07/17 21:58 Pt has some paranoia and exit seeking behavior. Continue current care
[2017-03-08] MEDS: CYANOCOBALAMIN (B-12) 500mcg TABLET PO SCH (08:44)
[2017-03-08] MEDS: CIMETIDINE 300 MG TABLET PO SCH (08:44)
[2017-03-08] MEDS: CITALOPRAM 20 MG TABLET PO SCH (08:45)
[2017-03-08] MEDS: LACTOBACILLUS (15B cfu) CAPSULE PO SCH (08:45)
[2017-03-08] MEDS: QUETIAPINE 50 MG TABLET PO SCH ×2 (08:45→14:22)
--- NOTE | 2017-03-08 08:51 | Discharge Instructions ---
Discharge Plan - Med Rec/Dispo Referrals/Follow Up: Jennifer Hall APRN [Other] (Jennifer Hall APRN will see patient on rounds at the facility for Hosp. follow- up. They will also manage meds for Mental Health. ) Additional Instructions: Discharge Diagnosis: Major Neurocognitive Disorder with behavioral Disturbance Reasons for Admission: High elopement risk, and agitation. IN CASE OF PSYCHIATRIC EMERGENCY, CONTACT [facility] STAFF AT [phone] ( available 24 hrs daily). Prescriptions: New LORazepam [Ativan] 0.5 mg PO Q6H PRN tablet PRN Reason: Extreme Agitation Quetiapine [Seroquel] 50 mg PO TID #90 tab Haloperidol [Haldol] 0.5 mg PO Q6H PRN tablet PRN Reason: Extreme Agitation Continue LORazepam [Ativan] 0.5 mg PO Q6H PRN PRN Reason: Anxiety Acetaminophen 650 mg PO Q4H PRN PRN Reason: Pain /Fever LORazepam [Ativan] 0.5 mg PO TID Citalopram [Celexa] 20 mg PO DAILY Discontinued Zolpidem Tartrate 5 mg PO HS Quetiapine Fumarate [Seroquel] 25 mg PO DAILY PRN PRN Reason: Prn Orders Magnesium Hydroxide [Milk of Magnesia] 30 ml PO Q72H PRN PRN Reason: Constipation Lorazepam 0.5 ml TOP Q4H PRN PRN Reason: Prn Orders Quetiapine Fumarate [Seroquel] 50 mg PO BID No Action Cimetidine 300 mg PO DAILY Atorvastatin [Lipitor] 20 mg PO HS Carbidopa/Levodopa 25/250 MG [Sinemet] 2 tab PO TID Discharge Instructions/Outpatient Orders: Final Provider Discharge Instructions Location: Determined By Patient - Disposition [address] [facility] Home/Facility
--- NOTE | 2017-03-08 08:55 | Extended Care Facility Orders ---
Admission Orders Admit to:: Other Allergies/Adverse Reactions: Allergies Penicillins Allergy (Verified 03/01/17 16:55) Admitting Diagnosis: Unspec major neurocognitive disord w/behav disturb Admitting Physician: Jasmyn Cabrera MD Attending Physician: Jasmyn Cabrera MD Code Status: Full Code Anticiapted Length of Stay: greater than 30 days Rehab Potential: poor Rehab Prognosis: poor Diet: Regular Wound/Incision Care: NA May use Facility Protocol or Standing Orders: Yes May have flu vaccine: Yes Evaluations/Treatment: as needed Senior Care Certification: I certify that SNF services are required to be given on an Inpatient basis because of the patients need for care home care on a continuing basis for the condition(s) for which he/she received inpatient hospital services prior to his/her transfer to the SNF. SNF inpatient care is necessary for the following reasons Indication for Senior Care: Not Applicable - Additional Information In Event of Arrest: Start CPR,call 911,send patient to the ER Resident is Aware of Diagnosis: No Referrals: Jennifer Hall APRN [Other] (Jennifer Hall APRN will see patient on rounds at the facility for Hosp. follow- up. They will also manage meds for Mental Health. )
--- NOTE | 2017-03-08 09:01 | Discharge Instructions ---
Discharge Plan - Med Rec/Dispo Referrals/Follow Up: Jennifer Hall APRN [Other] (Jennifer Hall APRN will see patient on rounds at the facility for Hosp. follow- up. They will also manage meds for Mental Health. ) Additional Instructions: Discharge Diagnosis: Major Neurocognitive Disorder with behavioral Disturbance Reasons for Admission: High elopement risk, and agitation. IN CASE OF PSYCHIATRIC EMERGENCY, CONTACT [facility] AT [phone] ( available 24 hrs daily). Prescriptions: New LORazepam [Ativan] 0.5 mg PO Q6H PRN tablet PRN Reason: Extreme Agitation Quetiapine [Seroquel] 50 mg PO TID #90 tab Cyanocobalamin (B-12) [Vit. B-12] 1,000 mcg PO DAILY tablet Haloperidol [Haldol] 0.5 mg PO Q6H PRN tablet PRN Reason: Extreme Agitation CephALEXin [Keflex] 500 mg PO TID 3 Days #9 capsule Continue LORazepam [Ativan] 0.5 mg PO Q6H PRN PRN Reason: Anxiety Acetaminophen 650 mg PO Q4H PRN PRN Reason: Pain /Fever LORazepam [Ativan] 0.5 mg PO TID Citalopram [Celexa] 20 mg PO DAILY Cimetidine 300 mg PO DAILY Atorvastatin [Lipitor] 20 mg PO HS Carbidopa/Levodopa 25/250 MG [Sinemet] 2 tab PO TID Discontinued Zolpidem Tartrate 5 mg PO HS Quetiapine Fumarate [Seroquel] 25 mg PO DAILY PRN PRN Reason: Prn Orders Magnesium Hydroxide [Milk of Magnesia] 30 ml PO Q72H PRN PRN Reason: Constipation Lorazepam 0.5 ml TOP Q4H PRN PRN Reason: Prn Orders Quetiapine Fumarate [Seroquel] 50 mg PO BID Discharge Instructions/Outpatient Orders: Final Provider Discharge Instructions Location: Determined By Patient
--- NOTE | 2017-03-08 09:04 | Progress Note ---
Subjective: Prashant is seen and examined this morning while sitting in the day room watching television. He is alert and pleasant during examination. Nice having any headaches or neck pain. Denies any vision changes. Neurovascular exam is normal without deficit. Nursing staff reports that he is planning to be [facility]. Objective Vital signs: Temperature 97.6 F 03/07/17 23:05 Pulse Rate 70 03/07/17 23:05 Respiratory Rate 16 03/07/17 23:05 Blood Pressure 149/73 H 03/07/17 23:05 Pulse Oximetry 97 03/07/17 23:05 Height/Weight/BMI: Height 1.7 m Weight 73.4 kg Body Mass Index 25.2 - Constitutional Present: no acute distress, well nourished, well developed - Routine HEENT Exam Eye: Present: EOMI ENT: Present: mucous membranes moist, dentition normal - Routine Respiratory Exam Present: CTA bilaterally. Absent: wheezes - Routine Cardiovascular Exam Present: RRR, S1, S2. Absent: murmur - Routine Abdominal Exam Present: soft, normoactive bowel sounds, non distended. Absent: tenderness - Routine Extremities Exam Present: full ROM, normal capillary refill - Routine Back/Spine/Pelvis Exam Back/Spine: Present: full ROM - Routine Skin Exam Present: intact, dry, warm - Routine Neurological Exam Present: alert, oriented X3, CN II-XII intact, moving all extremities, vision grossly intact, hearing grossly intact, normal speech. Absent: abnormal gait - Routine Lymphatic Exam Lymphatic: Absent: adenopathy - Routine Psychiatric Exam Present: normal affect, cooperative Results - Labs CBC & Chem 7: 03/08/17 05:46 03/08/17 05:46 Assessment and Plan (1) Dementia with behavioral disturbance Current visit: Yes Status: Acute (2) UTI (urinary tract infection) Current visit: Yes Status: Acute Assessment and Plan: Assessment Dementia, Alzheimer's Disease with behavioral changes, acute on chronic. UTI, acute, present on admission. On Keflex. Hypernatremia, acute, present on admission. Parkinson's Disease with gait instability with frequent falls, chronic. CAD and Hyperlipidemia. Depression and Anxiety. Constipation. Vit B12 deficiency - B12 ordered. Witnessed fall without LOC on 03/07/17. Plan Neurovascular exams overnight remained normal without any concerns or changes. Reviewed morning laboratory studies CBC and BMP essentially normal. Patient is planned for [facility] to [facility]. Recommend continuing treatment for urinary tract infection for 3 additional days. Appears to be medically stable for discharge Hospital Course Summary Disclaimer: The visit summary below is not to be considered part of the above Progress Note. Hospital Course: 03/02/17: [facility]. ADMISSION Assessment Dementia, Alzheimer's Disease with behavioral changes, acute on chronic. UTI, acute, present on admission. Hypernatremia, acute, present on admission. Parkinson's Disease with gait instability with frequent falls, chronic. CAD and Hyperlipidemia. Depression and Anxiety. Constipation. Plan [facility]gree with admission to [facility] for further psychiatric evaluation and treatment. Provide safe and supportive environment with close monitoring as patient is a high risk for elopement and falls. UTI noted on admission. Preliminary culture reveals gram negative rods. Culture from recent UTI on 02/07/17 revealed Klebsiella pneumoniae which was treated with Cipro 500mg BID x 7 days. Sensitivity from that time showed only resistance to ampicillin and nitrofurantoin. Will initiate Keflex 500mg QID x 10 days for UTI. In light of patient's allergy to penicillin, monitor patient closely for signs of allergic reaction. Review of literature indicated high rates of resistance to cephalosporins with ESBL. Prior UA culture revealed sensitivities to cephalosporins and in light of recent treatment with Cipro and risk of side of effects with quinolones and Bactrim, will initiate Keflex and monitor new sensitivities closely and adjust treatment as indicated. Patient has been afebrile and WBC on admission was stable at 9.2. Will recheck CBC on to monitor blood counts. Initiate lactobacillus in light of initiation of antibiotic. Recent loose stools reported by home. GI panel in ED was negative. Monitor closely in light of recent antibiotics treatment with Cipro. Mild hypernatremia noted on admission with sodium 145. Encourage oral fluid intake and will recheck BMP on 03/03 to monitor electrolytes and renal function. Continue home Lipitor for hyperlipidemia and have patient follow up as outpatient for management. CT head and CXR upon admission were negative. Will obtain TSH and B12 for additional evaluation in light of behavioral changes. Results pending. Upon discharge, patient's care will be returned to his PCP, Dr. Henderson 03/03/17 18:26 Pt has not had any behaviors today. We will continue to monitor 03/04/17 20:55 Some agitation and exit seeking at times. Continue current care 03/05/17 12:10 Remains agitated in the evenings. Increase Seroquel to TID 03/06/17 20:56 Some exit seeking and impulsiveness. Continue current care 03/07/17 17:38 Neuro exam benign. Medications reviewed - not on ASA or anticoagulants. Medical chart reviewed. Head CT done on admit was negative for acute findings. At this time, will ask nursing to check neuros + VS q2h until he goes to bed tonight, then q4h tomorrow. I asked them to contact the hospitalist JOURDAN if abnormal findings were noted. 03/07/17 21:58 Pt has some paranoia and exit seeking behavior. Continue current care
[2017-03-08] MEDS: LORazepam 0.5 MG TABLET PO PRN (14:22)
[2017-03-08 15:52] VITALS: BP 128/73; PULSE 80; RESP 22; TEMP 98.9; O2SAT 94
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
== END 2017-03-08 15:45 | disposition home or self-care (01) | DRG 57 ==
LOC: ED 16:25 → GEN 21:43
PROVIDERS: ADMIT Psychiatry & Neurology Psychiatry; ATTEND Psychiatry & Neurology Psychiatry